=== PATIENT | female | born 1965 | race Caucasian/White ===

== ENCOUNTER 2018-08-24 13:40 | Inpatient (IN) | payer MEDICAID ==
--- NOTE | 2018-08-24 13:53 | ED Physician Chart ---
ED Chief Complaint/HPI - Patient Information Date Seen:: 08/24/18 Time Seen:: 13:10 Chief Complaint:: Chest Pain History of Present Illness:: onset x 2 days of midsternal, pressure type chest pain with dyspnea; pt denies trauma, H/As, S/T, neck pain, Abd. Pain, cough, A/N/V/D/C, fever, chills, or urinary s/s Historian:: Patient Review:: Nurse's Note Reviewed ED Review of Systems - Review of Systems General/Constitutional: No fever, No chills, No weight loss, No weakness, No diaphoresis, No edema, No loss of appetite Skin: No skin lesions, No rash, No bruising Head: No headache, No light-headedness Eyes: No loss of vision, No pain, No diplopia ENT: No earache, No nasal drainage, No sore throat, No tinnitus Neck: No neck pain, No swelling, No thyromegaly, No stiffness, No mass noted Cardio Vascular: Chest pain, No palpitations, No PND, No orthopnea, No edema Pulmonary: SOB, No cough, No sputum, No wheezing GI: No nausea, No vomiting, No diarrhea, No pain, No melena, No hematochezia, No constipation, No hematemesis G/U: No dysuria, No frequency, No hematuria, No nacturia Crusher Screen Repairer: No vaginal discharge, No abnormal vaginal bleed, No contraction Musculoskeletal: No bone or joint pain, No back pain, No muscle pain Endocrine: No polyuria, No polydipsia Psychiatric: No prior psych history, No depression, No anxiety, No suicidal ideation, No homicidal ideation, No auditory hallucination, No visual hallucination Hematopoietic: No bruising, No lymphadenopathy Allergic/Immuno: No urticaria, No angioedema Neurological: No syncope, No focal symptoms, No weakness, No paresthesia, No headache, No seizure, No dizziness, No confusion, No vertigo ED Past Medical History - Past Medical History Obtainable: Yes Past Medical History: HTN, DM Family History: Diabetes Melitus, HTN Social History: Non Smoker, No Alcohol, No Drug Use, Surgical History: None Psychiatricy History: None Medication: Reviewed Family Medical History - Family Member Mother History Unknown: Yes ED Physical Exam - Physical Examination General/Constitutional: Awake, Well-developed, well-nourished, Alert, No distress, GCS 15, Non-toxic appearing, Ambulatory Head: Atraumatic Eyes: Lids, conjuctiva normal, PERRL, EOMI Skin: Nl inspection, No rash, No skin lesions, No ecchymosis, Well hydrated, No lymphadenopathy ENMT: External ears, nose nl, TM canals nl, Nasal exam nl, Lips, teeth, gums nl , Oropharynx nl, Tonsils nl Neck: Nontender, Full ROM w/o pain, No JVD, No nuchal rigidity, No bruit, No mass, No stridor Respiratory: Nl effort/Exclusion, Clear to Auscultation, No Wheeze/Rhonchi/Rales Cardio Vascular: RRR, No murmur, gallop, rubs, NL S1 S2, Carotid/Femoral/Distal pulses equal bilaterally GI: No tenderness/rebounding/guarding, No organomegaly, No hernia, Normal BS's, Nondistended, No mass/bruits, No McBurney tenderness : No CVA tenderness Extremities: No tenderness or effusion, Full ROM, normal strength in all extremities, No edema, Normal digits & nails Neuro/Psych: Alert/oriented, DTR's symmetric, Normal sensory exam, Normal motor strength, Judgement/insight normal, Mood normal, Normal gait, No focal deficits Misc: Normal back, No paraspinal tenderness ED Labs/Radiology/EKG Results - Lab Results Comments:: Reviewed - Radiology Results Comments:: NAD - EKG Interpretations EKG Time:: 14:28 Rate & Rhythm: 108; ST Comments:: non-specific st-t changes ED Septic Shock - . Is Septic Shock (SBP<90, OR Lactate>4 mmol\L) present?: No ED Reassessment (Disposition) - Reassessment Reassessment Condition:: Improved - Diagnosis Diagnosis:: Chest Pain; Dyspnea; Hyponatremia; Uncontrolled DM; Hyperglycemia; Angina Pectoris; Tachycardia - Aftercare/Follow up Instructions Aftercare/Follow-Up Instructions:: Counseled pt regarding lab results/diagnosis & need follow up, Counseled pt & family regarding lab results/diagnosis & need follow up - Patient Disposition Discharge/Transfer:: Acute Care w/in this hosp Accepting Physician:: Dr. De La Cruz Time Called:: 1600 Time Responded:: 16:00 Admitted to:: Telemetry Spoke to:: Dr. De La Cruz Admitting Medical Physician:: Dr. De La Cruz Condition at Disposition:: Stable, Improved
[2018-08-24 15:02] LABS: % BASOPHILS 1.1 % (0.0-2.0); % EOSINOPHILS 3.5 % (0.0-5.0); % LYMPHOCYTES 36.6 % (20.0-50.0); % MONOCYTES 11.9 % (2.0-10.0); % NEUTROPHILS 46.9 % (40.0-80.0); BASOPHILE ABSOLUTE 0.1 Th/cumm (0-0.2); EOSINOPHILE ABSOLUTE 0.2 Th/cmm (0.1-0.4); HEMATOCRIT 43.2 % (41.0-60); HEMOGLOBIN 14.2 gm/dL (12-16); LYMPHOCYTE ABSOLUTE 2.5 Th/cmm (1.5-3.0); MEAN CELL VOLUME 85.9 fl (81-100); MEAN CORPUSCULAR HEMOGLOBIN 28.2 pg (27.0-31.0); MEAN CORPUSCULAR HGB CONC 32.8 pg (28.0-36.0); MEAN PLATELET VOLUME 8.1 fl; MONOCYTE ABSOLUTE 0.8 Th/cmm (0.3-1.0); NEUTROPHILE ABSOLUTE 3.3 Th/cmm (1.8-8.0); PLATELET COUNT 315 Th/cmm (150-400); RED BLOOD COUNT 5.02 Mil/cmm (3.80-5.10); WHITE BLOOD COUNT 6.9 Th/cmm (4.8-10.8)
[2018-08-24 15:04] LABS: INR 0.95 (0.5-1.4); PROTHROMBIN TIME (TEST) 9.9 SECONDS (9.5-11.5)
[2018-08-24 15:38] LABS: ALB/GLOB RATIO 1.2 (1.0-1.8); ALBUMIN 4.2 gm/dL (3.7-5.3); ALKALINE PHOSPHATASE 66 U/L (34-104); ANION GAP 13.5 (7.0-16.0); BILIRUBIN,TOTAL 0.5 mg/dL (0.3-1.0); BUN - UREA NITROGEN 16 mg/dL (7-25); CALCIUM SERUM 9.5 mg/dL (8.6-10.3); CHLORIDE 97 mEq/L (98-107); CHOLESTEROL 175 mg/dL (<200); CREATININE - SERUM 0.8 mg/dL (0.6-1.2); CREATININE KINASE 70 U/L (30-223); GFR AFRICAN-AMERICAN > 60.0 ml/min (>90); GFR NON AFRICAN-AMERICAN > 60.0 ml/min; GLUCOSE 344 mg/dL (70-105); HDL -HIGH DENSITY LIPOPROTEIN 38 mg/dL (23-92); POTASSIUM SERUM 4.5 mEq/L (3.5-5.1); SGOT 13 U/L (13-39); SGPT/ALT 17 U/L (7-52); SODIUM SERUM 132 mEq/L (136-145); TOTAL PROTEIN,SERUM 7.6 gm/dL (6.0-8.3); TRIGLYCERIDES 248 mg/dL (<150)
[2018-08-24 15:53] LABS: DDIMER QUANT 380 ng/mL (100-400)
[2018-08-24] MEDS ORDERED: Aspirin 81mg Chewable Tab PO STA (16:03)
[2018-08-24] MEDS ORDERED: INSULIN HUMAN REGULAR 100 UNITS/ML UNIT SUBQ ONE (16:04)
[2018-08-24] MEDS ORDERED: Aspirin 81mg Chewable Tab ONE (16:25)
[2018-08-24] MEDS ORDERED: INSULIN HUMAN REGULAR 100 UNITS/ML UNIT ONE (16:29)
[2018-08-24] MEDS ORDERED: Triple Antibiotic 0.94 gm Pkt TP ONE (16:43)
[2018-08-24 18:49] VITALS: BP 122/67
[2018-08-24] MEDS ORDERED: Dicyclomine 10 mg Cap PO PRN (19:59)
--- NOTE | 2018-08-25 08:33 | History and Physical ---
History of Present Illness - HPI Chief Complaint: Chest Pain HPI: 53 y/o female who presents to [facility] ER for 2 day history of chest pain with dyspnea. Patient denies neck pain, abd pain, cough. nausea, vomiting,diarrhea,constipation,fever,chills,urinary symptoms. Patient has a previous history of diabetes mellitus, hypertension, and hyperlipidemia. Patient 's inital labwork reveals the following ... Labs revealed the following... wbc 6.9 h/h 14.2/43.2 platelets 315K Na 132 K 4.5 Bun/cr 16/0.8 glu 344 initial trop < 0.01 chol 175 trig 248 ldl 98 hdl 38 patient was subsequently admitted for further evaluation and treatment. Vital Signs: Last Vital Signs Temp 97.7 F 08/25/18 04:00 Pulse 105 08/25/18 04:00 Resp 18 08/25/18 04:00 BP 122/88 08/25/18 04:00 Pulse Ox 98 08/25/18 04:00 Past Medical History Cardiovascular: Report: HTN, Hyperlipidemia Pulmonary: Report: No Pertinent Hx MANUFACTURING WEAVER: Report: No Pertinent Hx GI: Report: No Pertinent Hx Psych: Report: No Pertinent Hx Musculoskeletal: Report: No Pertinent Hx Rheumatologic: Report: No pertinent Hx Infectious Disease: Report: No Pertinent Hx Renal/: Report: No Pertinent Hx Endocrine: Report: No Pertinent Hx Dermatology: Report: No Pertinent Hx - Past Surgical History Past Surgical History: No pertinent Hx Family Medical History - Family Member Mother History Unknown: Yes Social History Smoke: No Alcohol: None Drugs: None Lives: With Family - Medications Home Medications: Home Medication Medication Instructions Recorded Type Ciprofloxacin HCl [Cipro] 500 mg PO BID 08/24/18 History Gabapentin 08/24/18 History Lisinopril 5 mg PO 08/24/18 History glyBURIDE [Diabeta] 10 mg PO BID 08/24/18 History - Allergies Allergies/Adverse Reactions: Allergies Allergy/AdvReac Type Severity Reaction Status Date / Time Penicillins [PCN] Allergy Verified 08/24/18 14:11 Review of Systems - Review of Systems Constitutional: Report: No Significant Eyes: Report: No Significant ENT: Report: No Significant Respiratory: Report: No Significant Cardiovascular: Report: Chest Pain Gastrointestinal: Report: No Significant Genitourinary: Report: No Significant Musculoskeletal: Report: No Significant Skin: Report: No Significant Neurological: Report: No Significant Physical Exam - Physical Exam HEENT: Report: Ears Nose Throat within normal limits, Pharnyx within normal limits Neck: Report: Within normal limits Cardiovascular Systems: Report: +s1/s2 noted, Regular, Rate and Rhythm Respiratory: Report: Breath Sounds are within normal limits Abdomen: Report: Non-tender to palpation Back: Report: Inspection of back is within normal limits. Extremities: Report: Non-tender to palpation. Skin: Report: Color of skin is within normal limits Neuro/Psych: Report: Mood affect is within normal limits, A+Ox3 - Lab Results All Lab Results last 24 hours: Laboratory Results - last 24 hr 08/24/18 08/24/18 08/24/18 14:41 14:41 14:41 WBC 6.9 RBC 5.02 Hgb 14.2 Hct 43.2 MCV 85.9 MCH 28.2 MCHC Differential 32.8 RDW 12.0 Plt Count 315 MPV 8.1 Neutrophils % 46.9 Lymphocytes % 36.6 Monocytes % 11.9 H Eosinophils % 3.5 Basophils % 1.1 PT 9.9 INR 0.95 D-Dimer 380 Sodium 132 L Potassium 4.5 Chloride 97 L Carbon Dioxide 26.0 Anion Gap 13.5 BUN 16 Creatinine 0.8 Est GFR ( Amer) > 60.0 Est GFR (Non-Af Amer) > 60.0 BUN/Creatinine Ratio 20.0 Glucose 344 H Calcium 9.5 Total Bilirubin 0.5 AST 13 ALT 17 Alkaline Phosphatase 66 Creatine Kinase 70 Troponin I B-Natriuretic Peptide Total Protein 7.6 Albumin 4.2 Globulin 3.4 Albumin/Globulin Ratio 1.2 Triglycerides 248 H Cholesterol 175 LDL Cholesterol Direct 98 HDL Cholesterol 38 Serum , Qual 08/24/18 08/24/18 08/24/18 14:41 14:41 14:41 WBC RBC Hgb Hct MCV MCH MCHC Differential RDW Plt Count MPV Neutrophils % Lymphocytes % Monocytes % Eosinophils % Basophils % PT INR D-Dimer Sodium Potassium Chloride Carbon Dioxide Anion Gap BUN Creatinine Est GFR ( Amer) Est GFR (Non-Af Amer) BUN/Creatinine Ratio Glucose Calcium Total Bilirubin AST ALT Alkaline Phosphatase Creatine Kinase Troponin I < 0.01 L B-Natriuretic Peptide 11.7 Total Protein Albumin Globulin Albumin/Globulin Ratio Triglycerides Cholesterol LDL Cholesterol Direct HDL Cholesterol Serum , Qual NEGATIVE - Assessment Assessment: chest pain rule out ACS diabetes mellitus hypertension hyperlipidemia - Plan Plan: cardiac consult serial troponins continue home meds
--- NOTE | 2018-08-25 08:59 | Diagnostic Imaging Report ---
Portable chest x-ray History: Pain Allowing for portable technique the heart size is normal. No focal pulmonary parenchymal processes. No hilar or mediastinal abnormalities. Impression: No acute abnormalities.
[2018-08-25 09:31] LABS: AMYLASE SERUM 56 U/L (29-103); LIPASE 101 U/L (11-82)
[2018-08-25] MEDS: Aspirin 81mg Chewable Tab PO SCH (09:43)
--- NOTE | 2018-08-25 10:16 | Diagnostic Imaging Report ---
Abdominal to HISTORY: Pain The liver appears somewhat increased in size. There is an increase in parenchymal echogenicity may be associated with fatty infiltration. The findings should be correlated with liver function tests per no focal lesions are seen. There is question of an approximate 1.0 cm intraluminal echogenic density in the vicinity of the right hepatic vein. Again, the finding is questionable. A three-phase CT scan is recommended for further clarification and assessment. No biliary dilatation. The exam of the gallbladder demonstrates an approximate 0.6 x 1.0 cm intraluminal echogenic density. Findings suggest cholelithiasis. No abnormality seen in the region of the pancreas. The kidneys appear normal bilaterally. No other significant retroperitoneal or intra-abdominal abnormalities. IMPRESSION: 1. Solitary intraluminal echogenic density within the gallbladder suggesting cholelithiasis. 2. Questionable intraluminal echogenic density in the vicinity of the right hepatic vein. The finding is of questionable and uncertain significance. A [address] scan would provide additional clarification. 3. Slight hepatomegaly along with parenchymal changes that may be related to fatty infiltration. The findings should be correlated with liver function tests.
[2018-08-25] MEDS: INSULIN ASPART SLIDING SCALE 100 UNITS/ML UNIT SUBQ SCH ×3 (12:19→20:56)
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
[2018-08-25] MEDS ORDERED: D5-0.45NS 1,000 ML IV SCH (18:50)
--- NOTE | 2018-08-25 23:13 | Consultation ---
DATE OF CONSULTATION: 08/25/[address] Correa. HISTORY OF PRESENT ILLNESS: This is a 53-year-old female patient who has been complaining of pain in the abdomen, not radiating to the arm or to the neck. The pain is on the left upper quadrant. No nausea or vomiting. According to the patient, the pain is for a year. The patient is supposed to see a printed circuit boards plasma etcher. Before that, the patient came to the Emergency Room. PAST MEDICAL HISTORY: Hypertension and hyperlipidemia. FAMILY HISTORY: Diabetes. SOCIAL HISTORY: No history of smoking, alcohol abuse. ALLERGIES: None. PHYSICAL EXAMINATION: VITAL SIGNS: Blood pressure 130/70, pulse 70, respirations 20, and temperature 98. HEAD: Normocephalic. No lumps or bumps. EYES: Pupils equal, reactive to light. Fundi show AV nicking, sclerae white, conjunctivae pink. NECK: Carotid 2+. Normal upstroke. JVD flat. Thyroid not palpable. Lymph nodes not palpable. CHEST: Shows increased AP diameter. No kyphosis, scoliosis. LUNGS: Bilateral bronchovesicular breath sounds. HEART: PMI fifth intercostal space with lateral to midclavicular line. S1, S2, S3, S4, soft systolic murmur. ABDOMEN: Soft. Liver, spleen not palpable. There is mild tenderness in the epigastric area in the left upper abdomen. NEUROLOGIC: Unremarkable. EXTREMITIES: Peripheral pulses 2+. No pedal edema. CLINICAL IMPRESSION: Gallstones, asymptomatic hypertension, diabetes, and hyperlipidemia. PLAN: The patient to continue present management. The patient's cardiac status normal. JOB# [id number]
[2018-08-26 05:43] LABS: INR 0.95 (0.5-1.4); PROTHROMBIN TIME (TEST) 9.9 SECONDS (9.5-11.5)
[2018-08-26] MEDS: INSULIN ASPART SLIDING SCALE 100 UNITS/ML UNIT SUBQ SCH ×4 (08:05→21:45)
--- NOTE | 2018-08-26 08:33 | General Progress Note ---
Subjective - Review of Systems Service Date: 08/26/18 Subjective: Patient was seen and examined this morning. For EGD today. NPO for now. on IV fluids. Patient denies chest pain or shortness of breath. Objective - Results Result Diagrams: 08/24/18 14:41 08/24/18 14:41 Recent Labs: Laboratory Last Values WBC 6.9 Th/cmm (4.8-10.8) 08/24/18 14:41 RBC 5.02 Mil/cmm (3.80-5.10) 08/24/18 14:41 Hgb 14.2 gm/dL (12-16) 08/24/18 14:41 Hct 43.2 % (41.0-60) 08/24/18 14:41 MCV 85.9 fl (81-100) 08/24/18 14:41 MCH 28.2 pg (27.0-31.0) 08/24/18 14:41 MCHC Differential 32.8 pg (28.0-36.0) 08/24/18 14:41 RDW 12.0 % (11.5-20.0) 08/24/18 14:41 Plt Count 315 Th/cmm (150-400) 08/24/18 14:41 MPV 8.1 fl 08/24/18 14:41 Neutrophils % 46.9 % (40.0-80.0) 08/24/18 14:41 Lymphocytes % 36.6 % (20.0-50.0) 08/24/18 14:41 Monocytes % 11.9 % (2.0-10.0) H 08/24/18 14:41 Eosinophils % 3.5 % (0.0-5.0) 08/24/18 14:41 Basophils % 1.1 % (0.0-2.0) 08/24/18 14:41 PT 9.9 SECONDS (9.5-11.5) 08/26/18 04:40 INR 0.95 (0.5-1.4) 08/26/18 04:40 D-Dimer 380 ng/mL (100-400) 08/24/18 14:41 Sodium 132 mEq/L (136-145) L 08/24/18 14:41 Potassium 4.5 mEq/L (3.5-5.1) 08/24/18 14:41 Chloride 97 mEq/L (98-107) L 08/24/18 14:41 Carbon Dioxide 26.0 mEq/L (21.0-31.0) 08/24/18 14:41 Anion Gap 13.5 (7.0-16.0) 08/24/18 14:41 BUN 16 mg/dL (7-25) 08/24/18 14:41 Creatinine 0.8 mg/dL (0.6-1.2) 08/24/18 14:41 Est GFR ( Amer) > 60.0 ml/min (>90) 08/24/18 14:41 Est GFR (Non-Af Amer) > 60.0 ml/min 08/24/18 14:41 BUN/Creatinine Ratio 20.0 08/24/18 14:41 Glucose 344 mg/dL (70-105) H 08/24/18 14:41 POC Glucose 305 MG/DL (70 - 105) H 08/26/18 06:59 Calcium 9.5 mg/dL (8.6-10.3) 08/24/18 14:41 Total Bilirubin 0.5 mg/dL (0.3-1.0) 08/24/18 14:41 AST 13 U/L (13-39) 08/24/18 14:41 ALT 17 U/L (7-52) 08/24/18 14:41 Alkaline Phosphatase 66 U/L (34-104) 08/24/18 14:41 Creatine Kinase 70 U/L (30-223) 08/24/18 14:41 Troponin I < 0.01 ng/mL (0.01-0.05) L 08/25/18 16:30 B-Natriuretic Peptide 11.7 pg/mL (5.0-100.0) 08/24/18 14:41 Total Protein 7.6 gm/dL (6.0-8.3) 08/24/18 14:41 Albumin 4.2 gm/dL (3.7-5.3) 08/24/18 14:41 Globulin 3.4 gm/dL 08/24/18 14:41 Albumin/Globulin Ratio 1.2 (1.0-1.8) 08/24/18 14:41 Triglycerides 248 mg/dL (<150) H 08/24/18 14:41 Cholesterol 175 mg/dL (<200) 08/24/18 14:41 LDL Cholesterol Direct 98 mg/dL (75-193) 08/24/18 14:41 HDL Cholesterol 38 mg/dL (23-92) 08/24/18 14:41 Amylase 56 U/L (29-103) 08/25/18 08:59 Lipase 101 U/L (11-82) H 08/25/18 08:59 TSH 2.29 uIU/ml (0.34-5.60) 08/25/18 08:59 Serum , Qual NEGATIVE (NEGATIVE) 08/24/18 14:41 - Physical Exam Vitals and I&O: Vital Signs Temp 97.2 F 08/26/18 04:00 Pulse 89 08/26/18 04:00 Resp 18 08/26/18 04:00 BP 115/69 08/26/18 04:00 Pulse Ox 98 08/26/18 04:00 Intake & Output 08/25/18 08/26/18 08/26/18 18:59 06:59 18:59 Intake Total 120 520 Balance 120 520 Weight (lbs) 54.431 kg 56.245 kg Intake: Oral 120 520 Other: # Voids 3 # Bowel Movements 0 Weight Source Bedscale Bedscale Active Medications: Current Medications Aspirin (Aspirin Chewable) 81 mg PO DAILY [facility] Stop: 10/24/18 08:59 Last Admin: 08/25/18 09:43 Dose: 81 mg Dicyclomine HCl (Bentyl) 10 mg PO Q6H PRN PRN Reason: ABDOMINAL PAIN/SPASM Stop: 10/23/18 19:58 Last Admin: 08/24/18 20:15 Dose: 10 mg Gabapentin (Neurontin) 300 mg PO DAILY [facility] Stop: 10/24/18 08:59 Last Admin: 08/25/18 09:43 Dose: 300 mg Glyburide (Diabeta) 10 mg PO BID [facility] Stop: 10/24/18 08:59 Last Admin: 08/25/18 16:52 Dose: 10 mg Dextrose/Sodium Chloride (D5-0.45ns) 1,000 mls @ 50 mls/hr IV .Q20H [facility] Stop: 10/24/18 18:49 Last Admin: 08/25/18 20:33 Dose: 50 mls/hr Insulin Aspart (Novolog Insulin Sliding Scale) 0 units SUBQ ACHS [facility]; Protocol Stop: 10/24/18 11:29 Last Admin: 08/26/18 08:05 Dose: 8 units Lisinopril (Zestril) 5 mg PO DAILY [facility] Stop: 10/24/18 08:59 Last Admin: 08/25/18 09:43 Dose: 5 mg Lorazepam (Ativan) 0.5 mg IVP Q8H PRN; Protocol PRN Reason: Anxiety Stop: 10/24/18 19:29 Last Admin: 08/25/18 21:04 Dose: 0.5 mg Morphine Sulfate (Morphine) 1 mg IV Q6H PRN PRN Reason: Abdominal Cramping Stop: 10/24/18 18:59 General: Alert, Oriented x3, No acute distress HEENT: Atraumatic, PERRLA, EOMI Neck: Supple Cardiovascular: Regular rate, Normal S1, Normal S2 Lungs: Clear to auscultation Extremities: no Clubbing, no Cyanosis, no Edema Assessment/Plan - Assessment Assessment: chest pain ACS ruled out diabetes mellitus hypertension hyperlipidemia cholelithiasis noted on US abd epigastric pain for EGD today. anxiety disorder - Plan Plan: EGD today keep NPO on IV fluids Nutritional Asmnt/Malnutr-PDOC - Dietary Evaluation Malnutrition Findings (Please click <Entered> for more info): Nutritional Asmnt/Malnutrition Start: 08/25/18 14: 36 Text: Status: Complete Freq: Protocol: Document 08/25/18 14:36 SUDARSHAN (Rec: 08/25/18 14:52 SUDARSHAN FRIAS) Nutritional Asmnt/Malnutrition Patient General Information Nutritional Screening High Risk Consult Diagnosis chest pain Pertinent Medical Hx/Surgical Hx DM, HTN, hyperlipidemia Subjective Information Consult received for [facility] at admission. Pt eating lunch and appeared to have finished 90-100% at time of visit. Pt states she likes chamomile tea and dislikes pork. Pt states she has insulin at home, but doesn 't take it and tries to watch her carbohydrate intake at home. Provided education on carbohydrate counting to pt. Per EMR, pt finished 100% breakfast today. Current Diet Order/ Nutrition Support CCHO 45 gm Pertinent Medications diabeta, novolog Pertinent Labs 08/25: POC 398 08/24: glucose 344, Na 132, Cl 97, triglycerides 248 Nutritional Hx/Data Height 1.5 m Height (Calculated Centimeters) 149.9 Current Weight (lbs) 54.431 kg Weight (Calculated Kilograms) 54.4 Weight (Calculated Grams) 87784.1 [place] Body Weight 98 lb Body Mass Index (BMI) 24.2 Weight Status Approriate GI Symptoms GI Symptoms None Last BM none noted Difficult in: None Food Allergies No Usual diet at home Pt states she tries to eat healthy and control her carbohydrate intake Skin Integrity/Comment: intact, maurice 20 Current %PO Good (75-100%) Estimated Nutritional Goals BEE in Kcals: Using Current wt Calories/Kcals/Kg 25-30 Kcals Calculated 4404-8132 Protein: Using Current wt Protein g/k.8-1 Protein Calculated 44-55 g Fluid: ml 5286-1599 (1 ml/kcal) Nutritional Problem 1. Problem Problem Altered nutrition related lab values Etiology hyperglycemia, hx of DM, electrolyte imbalance Signs/Symptoms: POC 398, glucose 344, Na 132, Cl 97 Malnutrition Alert Is there a minimum of two criteria No selected? Query Text:Check all the applicable criteria. A minimum of two criteria are recommended for diagnosis of either severe or non-severe malnutrition. Malnutrition Related to Morbid Obesity Malnutrition related to morbid obesity No Intervention/Recommendation Comments 1. Continue with [facility] 45 gm diet as ordered d/t elevated bs. Diabetic education provided to pt. Pt verbalized understanding. Diabetic diet handouts given to pt. 2. MD to replace electrolytes as needed 3. Monitor PO intake, wt, labs and skin integrity 4. F/U as moderate risk in 3-5 days, 08/28-08/30 Expected Outcomes/Goals Expected Outcomes/Goals 1. PO intake to meet at least 75% of all meals 2. Wt stability, skin to remain intact, labs to approach normal limits Reviewd by Jacqui Evangelista RD
[2018-08-26] MEDS: Aspirin 81mg Chewable Tab PO SCH (09:22)
[2018-08-26] MEDS: Morphine Sulfate 2 mg/mL 1mL Syr IV PRN ×2 (11:42→21:46)
[2018-08-26] MEDS ORDERED: Propofol 10 mg/mL 20mL Vial **SURGERY USE ONLY IV ONE (12:40)
[2018-08-26] MEDS ORDERED: Lidocaine 2% Gel 5 mL TP ONE (12:40)
--- NOTE | 2018-08-26 14:12 | Operative Report ---
DATE OF SURGERY: 08/26/2018 REFERRING PHYSICIAN: Rolf Correa DO PROCEDURE PERFORMED: EGD with biopsy. PREOPERATIVE DIAGNOSES: 1. Intractable abdominal pain. 2. Cholelithiasis. POSTOPERATIVE DIAGNOSIS: Moderate erosive gastritis. INDICATION: This is a 53-year-old female who presents with nonspecific complaints of chest pain and dyspnea as well as left upper quadrant abdominal pain. She states she has been having this pain on and off and it is constant, not associated with eating. She had an abdominal ultrasound that showed gallstones; however, her symptomatology was not clearcut for biliary type of pain. An upper endoscopy was chosen for further evaluation to help with diagnosis for any causes of her pain. CONSENT: Informed consent was obtained from the patient after explaining the risks, benefits and alternatives of the procedure, which were understood and so stated. SEDATION: Per anesthesia. EGD: While the patient was in the left lateral decubitus position, a GIF-H180 scope was introduced through the patient's mouth and advanced under direct visualization into the esophagus down into the stomach and up to the second portion of the duodenum. Here, the scope was withdrawn carefully examining the color, texture and anatomy of the mucosa. The patient had normal D1 and D2. The scope was then brought back to the gastric body where retroflexion was performed, which was normal. The scope was then straightened forward. Careful attention was paid into the gastric body and antrum. There was evidence of mild to moderate erosive gastritis in this area. We took biopsies to rule out H. pylori and sent for CLOtest. The scope was then brought back to the GE junction, which was present at 38 cm from the incisors. The patient had a slightly irregular Z line; however, no evidence of esophagitis. The scope was then brought back to the middle of the esophagus, which was normal. The scope was then drawn out and the patient tolerated this procedure well. RECOMMENDATIONS: 1. We would add a daily PPI to her regimen. 2. Advance diet as tolerated. 3. We would recommend a CT scan triple phase for ruling out any sort of gallbladder polyp or gallbladder type of lesion as referred to and her abdominal ultrasound from admission. Thank you for allowing us to participate in this patient's care. We will follow. [facility]# [id number]
--- NOTE | 2018-08-26 16:47 | Cardiology ---
08/25/2018 PROCEDURE: Echocardiogram. The patient of Dr. Correa. M-MODE ECHOCARDIOGRAM: Mitral valve, anterior leaflet of mitral valve shows normal excursion, EF velocity. Posterior leaflet of mitral valve shows normal excursion. Left ventricular posterior wall showed normal thickness, excursion. Interventricular septum showed normal thickness, excursion. Ejection fraction 74%. Left atrium normal. Aortic root shows normal dimension, normal excursion of aortic leaflets. CONCLUSION: Normal M-mode echo, ejection fraction 74%. 2D ECHO: Long axis view showed normal sized left ventricle with normal wall motion, mitral valve shows normal excursion. Left atrium normal. Aortic root shows normal dimension, normal excursion of aortic leaflets. Short axis view of mitral valve normal. Short axis view of aortic valve normal. Apical four chamber view showed normal sized left ventricle, left atrium, right ventricle, right atrium, tricuspid, and mitral valve. Ejection fraction 74%. CONCLUSION: Normal 2D echo, ejection fraction 74%. Doppler study showed trace mitral regurgitation, trace tricuspid regurgitation, right ventricular systolic pressure 28 mmHg. [facility]# [id number]
--- NOTE | 2018-08-27 05:41 | General Progress Note ---
Subjective - Review of Systems Service Date: 08/27/18 Subjective: Patient was seen and examined this morning. EGD done yesterday, shows mild to moderate gastritis. on PPI. abd pain improving. no chest pain or sob. Objective - Results Result Diagrams: 08/24/18 14:41 08/24/18 14:41 Recent Labs: Laboratory Last Values WBC 6.9 Th/cmm (4.8-10.8) 08/24/18 14:41 RBC 5.02 Mil/cmm (3.80-5.10) 08/24/18 14:41 Hgb 14.2 gm/dL (12-16) 08/24/18 14:41 Hct 43.2 % (41.0-60) 08/24/18 14:41 MCV 85.9 fl (81-100) 08/24/18 14:41 MCH 28.2 pg (27.0-31.0) 08/24/18 14:41 MCHC Differential 32.8 pg (28.0-36.0) 08/24/18 14:41 RDW 12.0 % (11.5-20.0) 08/24/18 14:41 Plt Count 315 Th/cmm (150-400) 08/24/18 14:41 MPV 8.1 fl 08/24/18 14:41 Neutrophils % 46.9 % (40.0-80.0) 08/24/18 14:41 Lymphocytes % 36.6 % (20.0-50.0) 08/24/18 14:41 Monocytes % 11.9 % (2.0-10.0) H 08/24/18 14:41 Eosinophils % 3.5 % (0.0-5.0) 08/24/18 14:41 Basophils % 1.1 % (0.0-2.0) 08/24/18 14:41 PT 9.9 SECONDS (9.5-11.5) 08/26/18 04:40 INR 0.95 (0.5-1.4) 08/26/18 04:40 D-Dimer 380 ng/mL (100-400) 08/24/18 14:41 Sodium 132 mEq/L (136-145) L 08/24/18 14:41 Potassium 4.5 mEq/L (3.5-5.1) 08/24/18 14:41 Chloride 97 mEq/L (98-107) L 08/24/18 14:41 Carbon Dioxide 26.0 mEq/L (21.0-31.0) 08/24/18 14:41 Anion Gap 13.5 (7.0-16.0) 08/24/18 14:41 BUN 16 mg/dL (7-25) 08/24/18 14:41 Creatinine 0.8 mg/dL (0.6-1.2) 08/24/18 14:41 Est GFR ( Amer) > 60.0 ml/min (>90) 08/24/18 14:41 Est GFR (Non-Af Amer) > 60.0 ml/min 08/24/18 14:41 BUN/Creatinine Ratio 20.0 08/24/18 14:41 Glucose 344 mg/dL (70-105) H 08/24/18 14:41 POC Glucose 374 MG/DL (70 - 105) H 08/26/18 21:39 Calcium 9.5 mg/dL (8.6-10.3) 08/24/18 14:41 Total Bilirubin 0.5 mg/dL (0.3-1.0) 08/24/18 14:41 AST 13 U/L (13-39) 08/24/18 14:41 ALT 17 U/L (7-52) 08/24/18 14:41 Alkaline Phosphatase 66 U/L (34-104) 08/24/18 14:41 Creatine Kinase 70 U/L (30-223) 08/24/18 14:41 Troponin I < 0.01 ng/mL (0.01-0.05) L 08/25/18 16:30 B-Natriuretic Peptide 11.7 pg/mL (5.0-100.0) 08/24/18 14:41 Total Protein 7.6 gm/dL (6.0-8.3) 08/24/18 14:41 Albumin 4.2 gm/dL (3.7-5.3) 08/24/18 14:41 Globulin 3.4 gm/dL 08/24/18 14:41 Albumin/Globulin Ratio 1.2 (1.0-1.8) 08/24/18 14:41 Triglycerides 248 mg/dL (<150) H 08/24/18 14:41 Cholesterol 175 mg/dL (<200) 08/24/18 14:41 LDL Cholesterol Direct 98 mg/dL (75-193) 08/24/18 14:41 HDL Cholesterol 38 mg/dL (23-92) 08/24/18 14:41 Amylase 56 U/L (29-103) 08/25/18 08:59 Lipase 101 U/L (11-82) H 08/25/18 08:59 TSH 2.29 uIU/ml (0.34-5.60) 08/25/18 08:59 Serum , Qual NEGATIVE (NEGATIVE) 08/24/18 14:41 - Physical Exam Vitals and I&O: Vital Signs Temp 97.9 F 08/27/18 04:00 Pulse 100 08/27/18 04:00 Resp 18 08/27/18 04:00 BP 93/59 08/27/18 04:00 Pulse Ox 96 08/27/18 04:00 Intake & Output 08/26/18 08/26/18 08/27/18 06:59 18:59 06:59 Intake Total 520 420 100 Balance 520 420 100 Weight (lbs) 56.245 kg 56.245 kg 56.245 kg Intake: Oral 520 420 100 Other: # Voids 3 3 3 # Bowel Movements 0 1 0 Weight Source Bedscale Bedscale Bedscale Active Medications: Current Medications Aspirin (Aspirin Chewable) 81 mg PO DAILY [facility] Stop: 10/24/18 08:59 Last Admin: 08/26/18 09:22 Dose: Not Given Dicyclomine HCl (Bentyl) 10 mg PO Q6H PRN PRN Reason: ABDOMINAL PAIN/SPASM Stop: 10/23/18 19:58 Last Admin: 08/24/18 20:15 Dose: 10 mg Gabapentin (Neurontin) 300 mg PO DAILY [facility] Stop: 10/24/18 08:59 Last Admin: 08/26/18 09:23 Dose: Not Given Glyburide (Diabeta) 10 mg PO BID [facility] Stop: 10/24/18 08:59 Last Admin: 08/26/18 16:55 Dose: 10 mg Insulin Aspart (Novolog Insulin Sliding Scale) 0 units SUBQ ACHS [facility]; Protocol Stop: 10/24/18 11:29 Last Admin: 08/26/18 21:45 Dose: 10 units Lisinopril (Zestril) 5 mg PO DAILY [facility] Stop: 10/24/18 08:59 Last Admin: 08/26/18 09:00 Dose: Not Given Lorazepam (Ativan) 0.5 mg IVP Q8H PRN; Protocol PRN Reason: Anxiety Stop: 10/24/18 19:29 Last Admin: 08/26/18 15:42 Dose: 0.5 mg Morphine Sulfate (Morphine) 1 mg IV Q6H PRN PRN Reason: Abdominal Cramping Stop: 10/24/18 18:59 Last Admin: 08/26/18 21:46 Dose: 1 mg General: Alert, Oriented x3, No acute distress HEENT: Atraumatic, PERRLA, EOMI Neck: Supple Cardiovascular: Regular rate, Normal S1, Normal S2 Lungs: Clear to auscultation Extremities: no Clubbing, no Cyanosis, no Edema Assessment/Plan - Assessment Assessment: chest pain ACS ruled out diabetes mellitus hypertension hyperlipidemia cholelithiasis noted on US abd mild to moderate gastritis anxiety disorder for CT abd - Plan Plan: EGD today keep NPO on IV fluids Nutritional Asmnt/Malnutr-PDOC - Dietary Evaluation Malnutrition Findings (Please click <Entered> for more info): Nutritional Asmnt/Malnutrition Start: 08/25/18 14: 36 Text: Status: Complete Freq: Protocol: Document 08/25/18 14:36 SUDARSHAN (Rec: 08/25/18 14:52 SUDARSHAN FRIAS) Nutritional Asmnt/Malnutrition Patient General Information Nutritional Screening High Risk Consult Diagnosis chest pain Pertinent Medical Hx/Surgical Hx DM, HTN, hyperlipidemia Subjective Information Consult received for diabetic [facility] blood super at admission. Pt eating lunch and appeared to have finished 90-100% at time of visit. Pt states she likes chamomile tea and dislikes pork. Pt states she has insulin at home, but doesn 't take it and tries to watch her carbohydrate intake at home. Provided education on carbohydrate counting to pt. Per EMR, pt finished 100% breakfast today. Current Diet Order/ Nutrition Support CCHO 45 gm Pertinent Medications diabeta, novolog Pertinent Labs 08/25: POC 398 08/24: glucose 344, Na 132, Cl 97, triglycerides 248 Nutritional Hx/Data Height 1.5 m Height (Calculated Centimeters) 149.9 Current Weight (lbs) 54.431 kg Weight (Calculated Kilograms) 54.4 Weight (Calculated Grams) 87152.1 [place] Body Weight 98 lb Body Mass Index (BMI) 24.2 Weight Status Approriate GI Symptoms GI Symptoms None Last BM none noted Difficult in: None Food Allergies No Usual diet at home Pt states she tries to eat healthy and control her carbohydrate intake Skin Integrity/Comment: intact, maurice 20 Current %PO Good (75-100%) Estimated Nutritional Goals BEE in Kcals: Using Current wt Calories/Kcals/Kg 25-30 Kcals Calculated 1716-4382 Protein: Using Current wt Protein g/k.8-1 Protein Calculated 44-55 g Fluid: ml 5023-6275 (1 ml/kcal) Nutritional Problem 1. Problem Problem Altered nutrition related lab values Etiology hyperglycemia, hx of DM, electrolyte imbalance Signs/Symptoms: POC 398, glucose 344, Na 132, Cl 97 Malnutrition Alert Is there a minimum of two criteria No selected? Query Text:Check all the applicable criteria. A minimum of two criteria are recommended for diagnosis of either severe or non-severe malnutrition. Malnutrition Related to Morbid Obesity Malnutrition related to morbid obesity No Intervention/Recommendation Comments 1. Continue with [facility] 45 gm diet as ordered d/t elevated bs. Diabetic education provided to pt. Pt verbalized understanding. Diabetic diet handouts given to pt. 2. MD to replace electrolytes as needed 3. Monitor PO intake, wt, labs and skin integrity 4. F/U as moderate risk in 3-5 days, 08/28-08/30 Expected Outcomes/Goals Expected Outcomes/Goals 1. PO intake to meet at least 75% of all meals 2. Wt stability, skin to remain intact, labs to approach normal limits Reviewd by Jacqui Evangelista RD
[2018-08-27] MEDS: INSULIN ASPART SLIDING SCALE 100 UNITS/ML UNIT SUBQ SCH ×4 (07:44→21:13)
[2018-08-27] MEDS: Aspirin 81mg Chewable Tab PO SCH (08:30)
[2018-08-27] MEDS ORDERED: IOHEXOL 300mgI/mL 100 ML VIAL PO ONE (09:18)
--- NOTE | 2018-08-27 10:44 | Diagnostic Imaging Report ---
CT abdomen and pelvis with intravenous contrast Indication: Abdominal pain, mass Comparison: Ultrasound abdomen on 08/25/2018, Technique: Axial images were obtained from the lung bases to the bilateral proximal femurs with IV contrast. Coronal reconstructions were made. total DLP: 434, CTDI8.9 FINDINGS: The lung bases are clear. No evidence of focal hepatic lesions. There is a 3 mm gallstone. Limited assessment of the hepatic veins demonstrates no obvious focal abnormalities. Punctate calcification of the splenic hilum is noted possibly vascular. No focal pancreatic or adrenal lesions. Small left renal cyst is noted measuring 1 cm. Additional low-density lesions are seen too small to characterize suggestive of cysts. Pelvic calcifications are noted possibly vascular. Urinary bladder jets are noted. Vascular phleboliths are noted. There is moderate amount of stool throughout the colon. No evidence of appendicitis. No free air or free fluid. Mild atherosclerosis is noted. Degenerative changes of the spine and pelvis are noted. IMPRESSION: Small gallstone noted. No focal hepatic abnormalities identified on this contrast-enhanced exam. No focal abnormalities of the hepatic veins. A repeat short-term ultrasound may be obtained for further assessment if there is concern for intraluminal abnormalities within the hepatic vein not visualized by CT. Moderate stool throughout the colon. No evidence of free fluid. Mild atherosclerosis.
--- NOTE | 2018-08-27 11:41 | GI Progress Note ---
Subjective - Review of Systems Service Date: 08/27/18 Events since last encounter: No events Subjective: Better . Still C/O epigastric and LUQ discomfort Objective - Results Result Diagrams: 08/24/18 14:41 08/24/18 14:41 Recent Labs: Laboratory Last Values WBC 6.9 Th/cmm (4.8-10.8) 08/24/18 14:41 RBC 5.02 Mil/cmm (3.80-5.10) 08/24/18 14:41 Hgb 14.2 gm/dL (12-16) 08/24/18 14:41 Hct 43.2 % (41.0-60) 08/24/18 14:41 MCV 85.9 fl (81-100) 08/24/18 14:41 MCH 28.2 pg (27.0-31.0) 08/24/18 14:41 MCHC Differential 32.8 pg (28.0-36.0) 08/24/18 14:41 RDW 12.0 % (11.5-20.0) 08/24/18 14:41 Plt Count 315 Th/cmm (150-400) 08/24/18 14:41 MPV 8.1 fl 08/24/18 14:41 Neutrophils % 46.9 % (40.0-80.0) 08/24/18 14:41 Lymphocytes % 36.6 % (20.0-50.0) 08/24/18 14:41 Monocytes % 11.9 % (2.0-10.0) H 08/24/18 14:41 Eosinophils % 3.5 % (0.0-5.0) 08/24/18 14:41 Basophils % 1.1 % (0.0-2.0) 08/24/18 14:41 PT 9.9 SECONDS (9.5-11.5) 08/26/18 04:40 INR 0.95 (0.5-1.4) 08/26/18 04:40 D-Dimer 380 ng/mL (100-400) 08/24/18 14:41 Sodium 132 mEq/L (136-145) L 08/24/18 14:41 Potassium 4.5 mEq/L (3.5-5.1) 08/24/18 14:41 Chloride 97 mEq/L (98-107) L 08/24/18 14:41 Carbon Dioxide 26.0 mEq/L (21.0-31.0) 08/24/18 14:41 Anion Gap 13.5 (7.0-16.0) 08/24/18 14:41 BUN 16 mg/dL (7-25) 08/24/18 14:41 Creatinine 0.8 mg/dL (0.6-1.2) 08/24/18 14:41 Est GFR ( Amer) > 60.0 ml/min (>90) 08/24/18 14:41 Est GFR (Non-Af Amer) > 60.0 ml/min 08/24/18 14:41 BUN/Creatinine Ratio 20.0 08/24/18 14:41 Glucose 344 mg/dL (70-105) H 08/24/18 14:41 POC Glucose 182 MG/DL (70 - 105) H 08/27/18 06:48 Calcium 9.5 mg/dL (8.6-10.3) 08/24/18 14:41 Total Bilirubin 0.5 mg/dL (0.3-1.0) 08/24/18 14:41 AST 13 U/L (13-39) 08/24/18 14:41 ALT 17 U/L (7-52) 08/24/18 14:41 Alkaline Phosphatase 66 U/L (34-104) 08/24/18 14:41 Creatine Kinase 70 U/L (30-223) 08/24/18 14:41 Troponin I < 0.01 ng/mL (0.01-0.05) L 08/25/18 16:30 B-Natriuretic Peptide 11.7 pg/mL (5.0-100.0) 08/24/18 14:41 Total Protein 7.6 gm/dL (6.0-8.3) 08/24/18 14:41 Albumin 4.2 gm/dL (3.7-5.3) 08/24/18 14:41 Globulin 3.4 gm/dL 08/24/18 14:41 Albumin/Globulin Ratio 1.2 (1.0-1.8) 08/24/18 14:41 Triglycerides 248 mg/dL (<150) H 08/24/18 14:41 Cholesterol 175 mg/dL (<200) 08/24/18 14:41 LDL Cholesterol Direct 98 mg/dL (75-193) 08/24/18 14:41 HDL Cholesterol 38 mg/dL (23-92) 08/24/18 14:41 Amylase 56 U/L (29-103) 08/25/18 08:59 Lipase 101 U/L (11-82) H 08/25/18 08:59 TSH 2.29 uIU/ml (0.34-5.60) 08/25/18 08:59 Serum , Qual NEGATIVE (NEGATIVE) 08/24/18 14:41 - Physical Exam Vitals and I&O: Vital Signs Temp 97.7 F 08/27/18 08:00 Pulse 100 08/27/18 08:00 Resp 18 08/27/18 11:00 BP 117/66 08/27/18 08:00 Pulse Ox 98 08/27/18 08:00 Intake & Output 08/26/18 08/27/18 08/27/18 18:59 06:59 18:59 Intake Total 420 100 Balance 420 100 Weight (lbs) 56.245 kg 56.245 kg Intake: Oral 420 100 Other: # Voids 3 3 # Bowel Movements 1 0 Weight Source Bedscale Bedscale Active Medications: Current Medications Aspirin (Aspirin Chewable) 81 mg PO DAILY [facility] Stop: 10/24/18 08:59 Last Admin: 08/27/18 08:30 Dose: Not Given Dicyclomine HCl (Bentyl) 10 mg PO Q6H PRN PRN Reason: ABDOMINAL PAIN/SPASM Stop: 10/23/18 19:58 Last Admin: 08/24/18 20:15 Dose: 10 mg Gabapentin (Neurontin) 300 mg PO DAILY [facility] Stop: 10/24/18 08:59 Last Admin: 08/27/18 08:30 Dose: Not Given Glyburide (Diabeta) 10 mg PO BID [facility] Stop: 10/24/18 08:59 Last Admin: 08/27/18 08:30 Dose: Not Given Insulin Aspart (Novolog Insulin Sliding Scale) 0 units SUBQ ACHS [facility]; Protocol Stop: 10/24/18 11:29 Last Admin: 08/27/18 07:44 Dose: Not Given Lisinopril (Zestril) 5 mg PO DAILY [facility] Stop: 10/24/18 08:59 Last Admin: 08/27/18 08:30 Dose: Not Given Lorazepam (Ativan) 0.5 mg IVP Q8H PRN; Protocol PRN Reason: Anxiety Stop: 10/24/18 19:29 Last Admin: 08/26/18 15:42 Dose: 0.5 mg Morphine Sulfate (Morphine) 1 mg IV Q6H PRN PRN Reason: Abdominal Cramping Stop: 10/24/18 18:59 Last Admin: 08/26/18 21:46 Dose: 1 mg Pantoprazole Sodium (Protonix) 40 mg IVP DAILY [facility] Stop: 10/26/18 08:59 Last Admin: 08/27/18 08:39 Dose: 40 mg General: Alert, Oriented x3, No acute distress HEENT: Atraumatic, PERRLA, EOMI Neck: Supple Cardiovascular: Regular rate, Normal S1, Normal S2 Lungs: Clear to auscultation Abdomen: Bowel sounds, Soft Extremities: no Clubbing, no Cyanosis, no Edema Assessment/Plan - Assessment Assessment: Abd pain - Plan Plan: 1. Abdominal pain Most likely combination of gastritis +/_ IBS PPI and treat HP if positive If pain persists then Add BentylOPT colonoscopy
[2018-08-27] MEDS: Morphine Sulfate 2 mg/mL 1mL Syr IV PRN (21:11)
--- NOTE | 2018-08-28 05:48 | General Progress Note ---
Subjective - Review of Systems Service Date: 08/28/18 Subjective: Patient was seen and examined this morning. EGD done yesterday, shows mild to moderate gastritis. on PPI. abd pain improving. no chest pain or sob. CT abd noted. Patient feeling better today. Objective - Results Result Diagrams: 08/24/18 14:41 08/24/18 14:41 Recent Labs: Laboratory Last Values WBC 6.9 Th/cmm (4.8-10.8) 08/24/18 14:41 RBC 5.02 Mil/cmm (3.80-5.10) 08/24/18 14:41 Hgb 14.2 gm/dL (12-16) 08/24/18 14:41 Hct 43.2 % (41.0-60) 08/24/18 14:41 MCV 85.9 fl (81-100) 08/24/18 14:41 MCH 28.2 pg (27.0-31.0) 08/24/18 14:41 MCHC Differential 32.8 pg (28.0-36.0) 08/24/18 14:41 RDW 12.0 % (11.5-20.0) 08/24/18 14:41 Plt Count 315 Th/cmm (150-400) 08/24/18 14:41 MPV 8.1 fl 08/24/18 14:41 Neutrophils % 46.9 % (40.0-80.0) 08/24/18 14:41 Lymphocytes % 36.6 % (20.0-50.0) 08/24/18 14:41 Monocytes % 11.9 % (2.0-10.0) H 08/24/18 14:41 Eosinophils % 3.5 % (0.0-5.0) 08/24/18 14:41 Basophils % 1.1 % (0.0-2.0) 08/24/18 14:41 PT 9.9 SECONDS (9.5-11.5) 08/26/18 04:40 INR 0.95 (0.5-1.4) 08/26/18 04:40 D-Dimer 380 ng/mL (100-400) 08/24/18 14:41 Sodium 132 mEq/L (136-145) L 08/24/18 14:41 Potassium 4.5 mEq/L (3.5-5.1) 08/24/18 14:41 Chloride 97 mEq/L (98-107) L 08/24/18 14:41 Carbon Dioxide 26.0 mEq/L (21.0-31.0) 08/24/18 14:41 Anion Gap 13.5 (7.0-16.0) 08/24/18 14:41 BUN 16 mg/dL (7-25) 08/24/18 14:41 Creatinine 0.8 mg/dL (0.6-1.2) 08/24/18 14:41 Est GFR ( Amer) > 60.0 ml/min (>90) 08/24/18 14:41 Est GFR (Non-Af Amer) > 60.0 ml/min 08/24/18 14:41 BUN/Creatinine Ratio 20.0 08/24/18 14:41 Glucose 344 mg/dL (70-105) H 08/24/18 14:41 POC Glucose 203 MG/DL (70 - 105) H 08/27/18 21:02 Calcium 9.5 mg/dL (8.6-10.3) 08/24/18 14:41 Total Bilirubin 0.5 mg/dL (0.3-1.0) 08/24/18 14:41 AST 13 U/L (13-39) 08/24/18 14:41 ALT 17 U/L (7-52) 08/24/18 14:41 Alkaline Phosphatase 66 U/L (34-104) 08/24/18 14:41 Creatine Kinase 70 U/L (30-223) 08/24/18 14:41 Troponin I < 0.01 ng/mL (0.01-0.05) L 08/25/18 16:30 B-Natriuretic Peptide 11.7 pg/mL (5.0-100.0) 08/24/18 14:41 Total Protein 7.6 gm/dL (6.0-8.3) 08/24/18 14:41 Albumin 4.2 gm/dL (3.7-5.3) 08/24/18 14:41 Globulin 3.4 gm/dL 08/24/18 14:41 Albumin/Globulin Ratio 1.2 (1.0-1.8) 08/24/18 14:41 Triglycerides 248 mg/dL (<150) H 08/24/18 14:41 Cholesterol 175 mg/dL (<200) 08/24/18 14:41 LDL Cholesterol Direct 98 mg/dL (75-193) 08/24/18 14:41 HDL Cholesterol 38 mg/dL (23-92) 08/24/18 14:41 Amylase 56 U/L (29-103) 08/25/18 08:59 Lipase 101 U/L (11-82) H 08/25/18 08:59 TSH 2.29 uIU/ml (0.34-5.60) 08/25/18 08:59 Serum , Qual NEGATIVE (NEGATIVE) 08/24/18 14:41 - Physical Exam Vitals and I&O: Vital Signs Temp 97.7 F 08/27/18 16:00 Pulse 94 08/27/18 16:00 Resp 18 08/27/18 23:00 BP 123/67 08/27/18 16:00 Pulse Ox 100 08/27/18 16:00 Intake & Output 08/27/18 08/27/18 08/28/18 06:59 18:59 06:59 Intake Total 100 1400 Balance 100 1400 Weight (lbs) 56.245 kg 58.967 kg Intake: Oral 100 1400 Other: # Voids 3 5 # Bowel Movements 0 0 Weight Source Bedscale Bedscale Active Medications: Current Medications Aspirin (Aspirin Chewable) 81 mg PO DAILY [facility] Stop: 10/24/18 08:59 Last Admin: 08/27/18 08:30 Dose: Not Given Dicyclomine HCl (Bentyl) 10 mg PO Q6H PRN PRN Reason: ABDOMINAL PAIN/SPASM Stop: 10/23/18 19:58 Last Admin: 08/24/18 20:15 Dose: 10 mg Gabapentin (Neurontin) 300 mg PO DAILY [facility] Stop: 10/24/18 08:59 Last Admin: 08/27/18 08:30 Dose: Not Given Glyburide (Diabeta) 10 mg PO BID [facility] Stop: 10/24/18 08:59 Last Admin: 08/27/18 16:44 Dose: 10 mg Insulin Aspart (Novolog Insulin Sliding Scale) 0 units SUBQ ACHS [facility]; Protocol Stop: 10/24/18 11:29 Last Admin: 08/27/18 21:13 Dose: 4 units Lisinopril (Zestril) 5 mg PO DAILY [facility] Stop: 10/24/18 08:59 Last Admin: 08/27/18 08:30 Dose: Not Given Lorazepam (Ativan) 0.5 mg IVP Q8H PRN; Protocol PRN Reason: Anxiety Stop: 10/24/18 19:29 Last Admin: 08/26/18 15:42 Dose: 0.5 mg Morphine Sulfate (Morphine) 1 mg IV Q6H PRN PRN Reason: Abdominal Cramping Stop: 10/24/18 18:59 Last Admin: 08/27/18 21:11 Dose: 1 mg Pantoprazole Sodium (Protonix) 40 mg IVP DAILY [facility] Stop: 10/26/18 08:59 Last Admin: 08/27/18 08:39 Dose: 40 mg General: Alert, Oriented x3, No acute distress HEENT: Atraumatic, PERRLA, EOMI Neck: Supple Cardiovascular: Regular rate, Normal S1, Normal S2 Lungs: Clear to auscultation Abdomen: Bowel sounds, Soft Extremities: no Clubbing, no Cyanosis, no Edema Assessment/Plan - Assessment Assessment: chest pain ACS ruled out diabetes mellitus hypertension hyperlipidemia cholelithiasis noted on US abd mild to moderate gastritis anxiety disorder - Plan Plan: will dc home patient to follow up in 3-5 days prescription for protonix 40mg PO given patient has pain med[facility] at [facility] Nutritional Asmnt/Malnutr-PDOC - Dietary Evaluation Malnutrition Findings (Please click <Entered> for more info): Nutritional Asmnt/Malnutrition Start: 08/25/18 14: 36 Text: Status: Complete Freq: Protocol: Document 08/25/18 14:36 SUDARSHAN (Rec: 08/25/18 14:52 SUDARSHAN FRIAS) Nutritional Asmnt/Malnutrition Patient General Information Nutritional Screening High Risk Consult Diagnosis chest pain Pertinent Medical Hx/Surgical Hx DM, HTN, hyperlipidemia Subjective Information Consult received for diabetic [facility] blood super at admission. Pt eating lunch and appeared to have finished 90-100% at time of visit. Pt states she likes chamomile tea and dislikes pork. Pt states she has insulin at home, but doesn 't take it and tries to watch her carbohydrate intake at home. Provided education on carbohydrate counting to pt. Per EMR, pt finished 100% breakfast today. Current Diet Order/ Nutrition Support CCHO 45 gm Pertinent Medications diabeta, novolog Pertinent Labs 08/25: POC 398 08/24: glucose 344, Na 132, Cl 97, triglycerides 248 Nutritional Hx/Data Height 1.5 m Height (Calculated Centimeters) 149.9 Current Weight (lbs) 54.431 kg Weight (Calculated Kilograms) 54.4 Weight (Calculated Grams) 20466.1 [place] Body Weight 98 lb Body Mass Index (BMI) 24.2 Weight Status Approriate GI Symptoms GI Symptoms None Last BM none noted Difficult in: None Food Allergies No Usual diet at home Pt states she tries to eat healthy and control her carbohydrate intake Skin Integrity/Comment: intact, maurice 20 Current %PO Good (75-100%) Estimated Nutritional Goals BEE in Kcals: Using Current wt Calories/Kcals/Kg 25-30 Kcals Calculated 6127-1669 Protein: Using Current wt Protein g/k.8-1 Protein Calculated 44-55 g Fluid: ml 8074-2045 (1 ml/kcal) Nutritional Problem 1. Problem Problem Altered nutrition related lab values Etiology hyperglycemia, hx of DM, electrolyte imbalance Signs/Symptoms: POC 398, glucose 344, Na 132, Cl 97 Malnutrition Alert Is there a minimum of two criteria No selected? Query Text:Check all the applicable criteria. A minimum of two criteria are recommended for diagnosis of either severe or non-severe malnutrition. Malnutrition Related to Morbid Obesity Malnutrition related to morbid obesity No Intervention/Recommendation Comments 1. Continue with [facility] 45 gm diet as ordered d/t elevated bs. Diabetic education provided to pt. Pt verbalized understanding. Diabetic diet handouts given to pt. 2. MD to replace electrolytes as needed 3. Monitor PO intake, wt, labs and skin integrity 4. F/U as moderate risk in 3-5 days, 08/28-08/30 Expected Outcomes/Goals Expected Outcomes/Goals 1. PO intake to meet at least 75% of all meals 2. Wt stability, skin to remain intact, labs to approach normal limits Reviewd by Jacqui Evangelista RD
[2018-08-28] MEDS: INSULIN ASPART SLIDING SCALE 100 UNITS/ML UNIT SUBQ SCH ×2 (08:02→12:18)
--- NOTE | 2018-08-28 08:18 | GI Progress Note ---
Subjective - Review of Systems Service Date: 08/28/18 Events since last encounter: No events Subjective: Better . Still C/O LUQ discomfort "It is there for a long time" Objective - Results Result Diagrams: 08/24/18 14:41 08/24/18 14:41 Recent Labs: Laboratory Last Values WBC 6.9 Th/cmm (4.8-10.8) 08/24/18 14:41 RBC 5.02 Mil/cmm (3.80-5.10) 08/24/18 14:41 Hgb 14.2 gm/dL (12-16) 08/24/18 14:41 Hct 43.2 % (41.0-60) 08/24/18 14:41 MCV 85.9 fl (81-100) 08/24/18 14:41 MCH 28.2 pg (27.0-31.0) 08/24/18 14:41 MCHC Differential 32.8 pg (28.0-36.0) 08/24/18 14:41 RDW 12.0 % (11.5-20.0) 08/24/18 14:41 Plt Count 315 Th/cmm (150-400) 08/24/18 14:41 MPV 8.1 fl 08/24/18 14:41 Neutrophils % 46.9 % (40.0-80.0) 08/24/18 14:41 Lymphocytes % 36.6 % (20.0-50.0) 08/24/18 14:41 Monocytes % 11.9 % (2.0-10.0) H 08/24/18 14:41 Eosinophils % 3.5 % (0.0-5.0) 08/24/18 14:41 Basophils % 1.1 % (0.0-2.0) 08/24/18 14:41 PT 9.9 SECONDS (9.5-11.5) 08/26/18 04:40 INR 0.95 (0.5-1.4) 08/26/18 04:40 D-Dimer 380 ng/mL (100-400) 08/24/18 14:41 Sodium 132 mEq/L (136-145) L 08/24/18 14:41 Potassium 4.5 mEq/L (3.5-5.1) 08/24/18 14:41 Chloride 97 mEq/L (98-107) L 08/24/18 14:41 Carbon Dioxide 26.0 mEq/L (21.0-31.0) 08/24/18 14:41 Anion Gap 13.5 (7.0-16.0) 08/24/18 14:41 BUN 16 mg/dL (7-25) 08/24/18 14:41 Creatinine 0.8 mg/dL (0.6-1.2) 08/24/18 14:41 Est GFR ( Amer) > 60.0 ml/min (>90) 08/24/18 14:41 Est GFR (Non-Af Amer) > 60.0 ml/min 08/24/18 14:41 BUN/Creatinine Ratio 20.0 08/24/18 14:41 Glucose 344 mg/dL (70-105) H 08/24/18 14:41 POC Glucose 213 MG/DL (70 - 105) H 08/28/18 05:57 Calcium 9.5 mg/dL (8.6-10.3) 08/24/18 14:41 Total Bilirubin 0.5 mg/dL (0.3-1.0) 08/24/18 14:41 AST 13 U/L (13-39) 08/24/18 14:41 ALT 17 U/L (7-52) 08/24/18 14:41 Alkaline Phosphatase 66 U/L (34-104) 08/24/18 14:41 Creatine Kinase 70 U/L (30-223) 08/24/18 14:41 Troponin I < 0.01 ng/mL (0.01-0.05) L 08/25/18 16:30 B-Natriuretic Peptide 11.7 pg/mL (5.0-100.0) 08/24/18 14:41 Total Protein 7.6 gm/dL (6.0-8.3) 08/24/18 14:41 Albumin 4.2 gm/dL (3.7-5.3) 08/24/18 14:41 Globulin 3.4 gm/dL 08/24/18 14:41 Albumin/Globulin Ratio 1.2 (1.0-1.8) 08/24/18 14:41 Triglycerides 248 mg/dL (<150) H 08/24/18 14:41 Cholesterol 175 mg/dL (<200) 08/24/18 14:41 LDL Cholesterol Direct 98 mg/dL (75-193) 08/24/18 14:41 HDL Cholesterol 38 mg/dL (23-92) 08/24/18 14:41 Amylase 56 U/L (29-103) 08/25/18 08:59 Lipase 101 U/L (11-82) H 08/25/18 08:59 TSH 2.29 uIU/ml (0.34-5.60) 08/25/18 08:59 Serum , Qual NEGATIVE (NEGATIVE) 08/24/18 14:41 - Physical Exam Vitals and I&O: Vital Signs Temp 97.7 F 08/28/18 07:59 Pulse 92 08/28/18 07:59 Resp 18 08/28/18 07:59 BP 122/78 08/28/18 07:59 Pulse Ox 100 08/28/18 07:59 Intake & Output 08/27/18 08/28/18 08/28/18 18:59 06:59 18:59 Intake Total 1400 400 Balance 1400 400 Weight (lbs) 58.967 kg 59.421 kg Intake: Oral 1400 400 Other: # Voids 5 # Bowel Movements 0 Weight Source Bedscale Bedscale Active Medications: Current Medications Aspirin (Aspirin Chewable) 81 mg PO DAILY [facility] Stop: 10/24/18 08:59 Last Admin: 08/27/18 08:30 Dose: Not Given Dicyclomine HCl (Bentyl) 10 mg PO Q6H PRN PRN Reason: ABDOMINAL PAIN/SPASM Stop: 10/23/18 19:58 Last Admin: 08/24/18 20:15 Dose: 10 mg Gabapentin (Neurontin) 300 mg PO DAILY [facility] Stop: 10/24/18 08:59 Last Admin: 08/27/18 08:30 Dose: Not Given Glyburide (Diabeta) 10 mg PO BID [facility] Stop: 10/24/18 08:59 Last Admin: 08/27/18 16:44 Dose: 10 mg Insulin Aspart (Novolog Insulin Sliding Scale) 0 units SUBQ ACHS [facility]; Protocol Stop: 10/24/18 11:29 Last Admin: 08/28/18 08:02 Dose: 4 units Lisinopril (Zestril) 5 mg PO DAILY [facility] Stop: 10/24/18 08:59 Last Admin: 08/27/18 08:30 Dose: Not Given Lorazepam (Ativan) 0.5 mg IVP Q8H PRN; Protocol PRN Reason: Anxiety Stop: 10/24/18 19:29 Last Admin: 08/26/18 15:42 Dose: 0.5 mg Morphine Sulfate (Morphine) 1 mg IV Q6H PRN PRN Reason: Abdominal Cramping Stop: 10/24/18 18:59 Last Admin: 08/27/18 21:11 Dose: 1 mg Pantoprazole Sodium (Protonix) 40 mg IVP DAILY [facility] Stop: 10/26/18 08:59 Last Admin: 08/27/18 08:39 Dose: 40 mg General: Alert, Oriented x3, No acute distress HEENT: Atraumatic, PERRLA, EOMI Neck: Supple Cardiovascular: Regular rate, Normal S1, Normal S2 Lungs: Clear to auscultation Abdomen: Bowel sounds, Soft Extremities: no Clubbing, no Cyanosis, no Edema Assessment/Plan - Assessment Assessment: Abd pain - Plan Plan: 1. Abdominal pain Most likely combination of gastritis +/_ IBS PPI and treat HP if positive She is on bentyl 10 Qid will change to 20 mg bid OPT colonoscopy
[2018-08-28] MEDS: Aspirin 81mg Chewable Tab PO SCH (08:39)
[2018-08-28] MEDS ORDERED: Dicyclomine 10 mg Cap PO SCH (09:00)
--- NOTE | 2018-08-29 15:47 | Discharge Summary ---
DATE OF DISCHARGE: 08/28/2018 PRELIMINARY DIAGNOSES: 1. Chest pain, rule out acute coronary syndrome. 2. Diabetes mellitus. 3. Hypertension. 4. Hyperlipidemia. 5. Abdominal pain. 6. Anxiety disorder. 7. Hyponatremia. DISCHARGE DIAGNOSES: 1. Chest pain, acute coronary syndrome ruled out. 2. Diabetes mellitus. 3. Hypertension. 4. Hyperlipidemia. 5. [id number] gastritis. 6. Anxiety disorder. HISTORY OF PRESENT ILLNESS: This is a 53-year-old female who presents to [facility] ER for a 2-day history of chest pain along with dyspnea. The patient denies any neck pain. Admits to abdominal pain. No nausea or vomiting. No diarrhea. The patient has a previous history of diabetes mellitus, hypertension, hyperlipidemia. Her initial lab work done in the ER revealed a white count of 6.9, hemoglobin of 14.2, hematocrit 43.2, platelets 315. Sodium was 132, potassium 4.5, BUN and creatinine 16/0.8, glucose was 344. Her initial troponin level was less than 0.01. Cholesterol was 175, triglycerides 248, LDL 98, HDL 38. The patient was subsequently admitted for further evaluation and treatment. HOSPITAL COURSE: The patient improved during her hospital stay. Chest pain, acute coronary syndrome was ruled out. Serial troponin levels were negative. The patient was seen and evaluated by Cardiology. Please see dictated report. The patient was seen by GI. Upper endoscopy was ordered revealing mild to moderate gastritis. The patient was started on Protonix IV 40 mg. The patient was later discharged on 40 mg of Protonix daily. The patient also underwent both an ultrasound of her abdomen as well as CT of the abdomen. Please see dictated report. She was subsequently discharged in stable condition to follow up with her regular physician. The patient was given a prescription of Protonix 40 mg once daily. JOB# [id number]
== END 2018-08-28 13:10 | disposition home or self-care (01) | DRG 243 ==
LOC: ER 13:40 → TELE 17:39
PROVIDERS: ADMIT Family Medicine; ATTEND Family Medicine
PROC: 0DB68ZX Excision of Stomach, Via Natural or Artificial Opening Endoscopic, Diagnostic (ICD-10-PCS; principal; 2018-08-26)
DX: K21.9 Gastro-esophageal reflux disease without esophagitis (principal); E11.00 Type 2 diabetes mellitus with hyperosmolarity without nonketotic hyperglycemic-hyperosmolar coma (NKHHC); K29.00 Acute gastritis without bleeding; E11.65 Type 2 diabetes mellitus with hyperglycemia; K80.80 Other cholelithiasis without obstruction; F32.9 Major depressive disorder, single episode, unspecified; R10.12 Left upper quadrant pain; F41.9 Anxiety disorder, unspecified; I20.9 Angina pectoris, unspecified; E87.1 Hypo-osmolality and hyponatremia; I10 Essential (primary) hypertension; R00.0 Tachycardia, unspecified; E78.5 Hyperlipidemia, unspecified; Z83.3 Family history of diabetes mellitus; Z82.49 Family history of ischemic heart disease and other diseases of the circulatory system; Z79.84 Long term (current) use of oral hypoglycemic drugs; Z88.0 Allergy status to penicillin
CPT/HCPCS: 36415-UA; 71045-TC; 76700-TC; 80053-TC; 80061-TC; 82150-TC; 82550-TC; 82948-90; 83036-90; 83690-TC; 83880-TC; 84443-TC; 84484-TC; 84703-TC; 85025-TC; 85379-TC; 85610-TC; 87338-TC; 93005; 94760; C9113; J1815; J2060; J2270; J2704; Q9967; Z7610

== ENCOUNTER 2018-12-11 23:03 | Inpatient (IN) | payer MEDICAID ==
--- NOTE | 2018-12-11 23:43 | ED Physician Chart ---
ED Chief Complaint/HPI - Patient Information Date Seen:: 12/11/18 Time Seen:: 23:41 Chief Complaint:: dysuria History of Present Illness:: 53 yr old female with dysuria for 4 days Allergies:: Allergies Allergy/AdvReac Type Severity Reaction Status Date / Time Penicillins [PCN] Allergy Verified 12/11/18 23:33 Vitals:: Vital Signs - 8 hr 12/11/18 23:15 Temp 97.9 F HR 98 RR 18 BP 116/72 O2 Sat % 99 ED Review of Systems - Review of Systems General/Constitutional: No fever, No chills, No weight loss, No weakness, No diaphoresis, No edema, No loss of appetite Skin: No skin lesions, No rash, No bruising Head: No headache, No light-headedness Eyes: No loss of vision, No pain, No diplopia ENT: No earache, No nasal drainage, No sore throat, No tinnitus Neck: No neck pain, No swelling, No thyromegaly, No stiffness, No mass noted Cardio Vascular: No chest pain, No palpitations, No PND, No orthopnea, No edema Pulmonary: No SOB, No cough, No sputum, No wheezing GI: No nausea, No vomiting, No diarrhea, No pain, No melena, No hematochezia, No constipation, No hematemesis G/U: No dysuria, No frequency, No hematuria Musculoskeletal: No bone or joint pain, No back pain, No muscle pain Endocrine: No polyuria, No polydipsia Psychiatric: No prior psych history, No depression, No anxiety, No suicidal ideation Hematopoietic: No bruising, No lymphadenopathy Allergic/Immuno: No urticaria, No angioedema Neurological: No syncope, No focal symptoms, No weakness, No paresthesia, No headache, No seizure, No dizziness, No confusion, No vertigo ED Past Medical History - Past Medical History Past Medical History: HTN, DM, ESRD, Other (anxiety) Family Medical History - Family Member Mother History Unknown: Yes Ethnicity: Hx Family Cancer: No Hx Family Congestive Heart Failure: No Hx Family Hypertension: No Hx Family Diabetes: No Hx Family Seizures: No Hx Family Dementia: No Hx Family HIV: No Hx Family Psychiatric Problems: No ED Physical Exam - Physical Examination General/Constitutional: Awake, Well-developed, well-nourished, Alert, No distress, GCS 15, Non-toxic appearing, Ambulatory Head: Atraumatic Eyes: Lids, conjuctiva normal, PERRL, EOMI Skin: Nl inspection, No rash, No skin lesions, No ecchymosis, Well hydrated, No lymphadenopathy ENMT: External ears, nose nl, Nasal exam nl, Lips, teeth, gums nl Neck: Nontender, Full ROM w/o pain, No JVD, No nuchal rigidity, No bruit, No mass, No stridor Respiratory: Nl effort/Exclusion, Clear to Auscultation, No Wheeze/Rhonchi/Rales Cardio Vascular: RRR, No murmur, gallop, rubs, NL S1 S2 GI: No tenderness/rebounding/guarding, No organomegaly, No hernia, Normal BS's, Nondistended, No mass/bruits, No McBurney tenderness : No CVA tenderness Extremities: No tenderness or effusion, Full ROM, normal strength in all extremities, No edema, Normal digits & nails Neuro/Psych: Alert/oriented, DTR's symmetric, Normal sensory exam, Normal motor strength, Judgement/insight normal, Mood normal, Normal gait, No focal deficits Misc: Normal back, No paraspinal tenderness ED Assessment - Assessment General Assessment: dysuria ED Septic Shock - . Is Septic Shock (SBP<90, OR Lactate>4 mmol\L) present?: No - <6hrs of presentation: Vital Signs: Vital Signs - 8 hr 12/11/18 23:15 Temp 97.9 F HR 98 RR 18 BP 116/72 O2 Sat % 99 ED Reassessment (Disposition) - Reassessment Reassessment:: dysuria - Diagnosis Diagnosis:: dysuria - Aftercare/Follow up Instructions Aftercare/Follow-Up Instructions:: Counseled pt regarding lab results/diagnosis & need follow up - Patient Disposition Discharge/Transfer:: Home Condition at Disposition:: Stable
[2018-12-11 23:58] LABS: URINE SOURCE CLEAN C
[2018-12-12] LABS: % BASOPHILS 0.6 % (0.0-2.0); % EOSINOPHILS 1.4 % (0.0-5.0); % LYMPHOCYTES 26.2 % (20.0-50.0); % MONOCYTES 11.3 % (2.0-10.0); % NEUTROPHILS 60.5 % (40.0-80.0); BASOPHILE ABSOLUTE 0.1 Th/cumm (0-0.2); EOSINOPHILE ABSOLUTE 0.1 Th/cmm (0.1-0.4); HEMATOCRIT 36.8 % (41.0-60); HEMOGLOBIN 12.2 gm/dL (12-16); LYMPHOCYTE ABSOLUTE 2.6 Th/cmm (1.5-3.0); MEAN CELL VOLUME 85.1 fl (81-100); MEAN CORPUSCULAR HEMOGLOBIN 28.2 pg (27.0-31.0); MEAN CORPUSCULAR HGB CONC 33.1 pg (28.0-36.0); MEAN PLATELET VOLUME 8.4 fl; MONOCYTE ABSOLUTE 1.1 Th/cmm (0.3-1.0); PLATELET COUNT 271 Th/cmm (150-400); RED BLOOD COUNT 4.32 Mil/cmm (3.80-5.10); RED CELL DISTRIBUTION WIDTH 11.8 % (11.5-20.0); WHITE BLOOD COUNT 9.9 Th/cmm (4.8-10.8)
[2018-12-12 00:08] LABS: URINE BILIRUBIN NEGATIVE (NEGATIVE); URINE BLOOD TRACE (NEGATIVE); URINE GLUCOSE (UA) >=1000 mg/dL (NEGATIVE); URINE KETONE NEGATIVE (NEGATIVE); URINE LEUKOCYTE ESTERASE NEGATIVE (NEGATIVE); URINE MICROSCOPIC INDICATED? YES; URINE NITRATE NEGATIVE (NEGATIVE); URINE PROTEIN NEGATIVE (NEGATIVE); URINE UROBILINOGEN 0.2 E.U./dL (0.2 - 1.0)
[2018-12-12 00:10] LABS: URINE CLARITY HAZY (CLEAR); URINE COLOR YELLOW
[2018-12-12 00:17] LABS: URINE BACTERIA FEW /hpf (NONE SEEN); URINE EPITHELIAL CELLS FEW /lpf (FEW); URINE WBC 25-50 /hpf (0-5)
[2018-12-12 00:18] LABS: ALB/GLOB RATIO 1.8 (1.0-1.8); ALBUMIN 3.9 gm/dL (3.7-5.3); ALKALINE PHOSPHATASE 100 U/L (34-104); ANION GAP 15.5 (7.0-16.0); BILIRUBIN,TOTAL 0.4 mg/dL (0.3-1.0); BUN - UREA NITROGEN 12 mg/dL (7-25); CALCIUM SERUM 8.6 mg/dL (8.6-10.3); CARBON DIOXIDE 22.5 mEq/L (21.0-31.0); CHLORIDE 94 mEq/L (98-107); CREATININE - SERUM 0.9 mg/dL (0.6-1.2); GFR AFRICAN-AMERICAN > 60.0 ml/min (>90); GFR NON AFRICAN-AMERICAN > 60.0 ml/min; SGOT 8 U/L (13-39); SGPT/ALT 16 U/L (7-52); SODIUM SERUM 128 mEq/L (136-145); TOTAL PROTEIN,SERUM 6.1 gm/dL (6.0-8.3)
[2018-12-12 00:23] LABS: GLUCOSE 630 mg/dL (70-105)
[2018-12-12] MEDS ORDERED: Sodium Chloride 0.9% 1,000 ML IV ONE ×2 (00:33→01:10)
[2018-12-12] MEDS ORDERED: Levofloxacin 500mg/100mL 500 MG/100 ML BAG IV ONE ×2 (00:35→00:54)
[2018-12-12] MEDS ORDERED: INSULIN HUMAN REGULAR 100 UNITS/ML UNIT IVP ONE (02:34)
[2018-12-12] MEDS ORDERED: INSULIN HUMAN REGULAR 100 UNITS/ML UNIT ONE (02:39)
[2018-12-12] MEDS ORDERED: Hydrocodone/APAP 5mg/325mg Tab PO ONE (03:55)
[2018-12-12] MEDS ORDERED: Hydrocodone/APAP 5mg/325mg Tab ONE (04:07)
[2018-12-12] MEDS ORDERED: Hydrocodone/APAP 5mg/325mg Tab PO PRN (04:16)
[2018-12-12 05:23] LABS: CHOLESTEROL 109 mg/dL (<200); HDL -HIGH DENSITY LIPOPROTEIN 35 mg/dL (23-92); TRIGLYCERIDES 211 mg/dL (<150)
[2018-12-12] MEDS ORDERED: INSULIN HUMAN REGULAR 100 UNITS/ML UNIT SUBQ SCH (07:30)
--- NOTE | 2018-12-12 08:25 | History and Physical ---
History of Present Illness - HPI Chief Complaint: dysuria, hyperglycemia, abdominal pain HPI: 53 y/o female who presents to [facility] ER for 4 day history of dysuria. Patient states that symptoms began 4 days prior to admission with increase frequency, urgency and dysuria. Patient has a previous medical history of Diabetes Mellitus, HTN Hyponatremia, Patient was found to have the following labwork.... Na 128 K 4.0 Bun/Cr 12/0.9 glu 630 UA glucose >1000 WBC 25-50 WBC 9.9 H/H 12.2/36.8 plat 271K patient to be admitted for further evaluation. Vital Signs: Last Vital Signs Temp 99.1 F 12/12/18 05:16 Pulse 95 12/12/18 05:16 Resp 18 12/12/18 05:16 BP 140/75 12/12/18 05:16 Pulse Ox 98 12/12/18 05:16 Past Medical History Cardiovascular: Report: HTN, Hyperlipidemia Pulmonary: Report: No Pertinent Hx GOLF CADDIE: Report: Peripheral neuropathy GI: Report: GERD Psych: Report: Anxiety Musculoskeletal: Report: No Pertinent Hx Rheumatologic: Report: No pertinent Hx Infectious Disease: Report: No Pertinent Hx Renal/: Report: UTI Endocrine: Report: Diabetes Dermatology: Report: No Pertinent Hx - Past Surgical History Past Surgical History: No pertinent Hx Family Medical History - Family Member Mother History Unknown: Yes Ethnicity: Hx Family Cancer: No Hx Family Congestive Heart Failure: No Hx Family Hypertension: No Hx Family Diabetes: No Hx Family Seizures: No Hx Family Dementia: No Hx Family HIV: No Hx Family Psychiatric Problems: No Social History Smoke: No Alcohol: None Drugs: None Lives: With Family - Medications Home Medications: Home Medication Medication Instructions Recorded Type Gabapentin 600 mg PO DAILY 08/24/18 History Lisinopril 5 mg PO DAILY 08/24/18 History glyBURIDE [Diabeta] 10 mg PO BID 08/24/18 History Lorazepam [Ativan] 0.5 mg PO HS 11/19/18 History Pantoprazole [Protonix] 40 mg PO DAILY 11/19/18 History - Allergies Allergies/Adverse Reactions: Allergies Allergy/AdvReac Type Severity Reaction Status Date / Time Penicillins [PCN] Allergy Verified 12/11/18 23:33 Review of Systems - Review of Systems Constitutional: Report: No Significant Eyes: Report: No Significant ENT: Report: No Significant Respiratory: Report: No Significant Cardiovascular: Report: No Significant Gastrointestinal: Report: No Significant Genitourinary: Report: No Significant Musculoskeletal: Report: No Significant Skin: Report: No Significant Neurological: Report: No Significant Physical Exam - Physical Exam HEENT: Report: Ears Nose Throat within normal limits, Pharnyx within normal limits Neck: Report: Within normal limits Cardiovascular Systems: Report: +s1/s2 noted, Regular, Rate and Rhythm Respiratory: Report: Breath Sounds are within normal limits Abdomen: Report: Non-tender to palpation Back: Report: Inspection of back is within normal limits. Extremities: Report: Non-tender to palpation. Skin: Report: Color of skin is within normal limits Neuro/Psych: Report: Mood affect is within normal limits - Lab Results All Lab Results last 24 hours: Laboratory Results - last 24 hr 12/11/18 12/11/18 12/11/18 23:25 23:50 23:50 WBC 9.9 RBC 4.32 Hgb 12.2 Hct 36.8 L MCV 85.1 MCH 28.2 MCHC Differential 33.1 RDW 11.8 Plt Count 271 MPV 8.4 Neutrophils % 60.5 Lymphocytes % 26.2 Monocytes % 11.3 H Eosinophils % 1.4 Basophils % 0.6 Sodium 128 L Potassium 4.0 Chloride 94 L Carbon Dioxide 22.5 Anion Gap 15.5 BUN 12 Creatinine 0.9 Est GFR ( Amer) > 60.0 Est GFR (Non-Af Amer) > 60.0 BUN/Creatinine Ratio 13.3 Glucose 630 H* POC Glucose Calcium 8.6 Total Bilirubin 0.4 AST 8 L ALT 16 Alkaline Phosphatase 100 Total Protein 6.1 Albumin 3.9 Globulin 2.2 Albumin/Globulin Ratio 1.8 Triglycerides Cholesterol LDL Cholesterol Direct HDL Cholesterol TSH Urine Source CLEAN C Urine Color YELLOW Urine Clarity HAZY Urine pH 6.0 Ur Specific [place] <= 1.005 Urine Protein NEGATIVE Urine Glucose (UA) >=1000 H Urine Ketones NEGATIVE Urine Blood TRACE Urine Nitrate NEGATIVE Urine Bilirubin NEGATIVE Urine Urobilinogen 0.2 Ur Leukocyte Esterase NEGATIVE Urine RBC 2-5 Urine WBC 25-50 H Ur Epithelial Cells FEW Urine Bacteria FEW 12/11/18 12/11/18 12/12/18 23:50 23:50 01:16 WBC RBC Hgb Hct MCV MCH MCHC Differential RDW Plt Count MPV Neutrophils % Lymphocytes % Monocytes % Eosinophils % Basophils % Sodium Potassium Chloride Carbon Dioxide Anion Gap BUN Creatinine Est GFR ( Amer) Est GFR (Non-Af Amer) BUN/Creatinine Ratio Glucose POC Glucose 466 H* Calcium Total Bilirubin AST ALT Alkaline Phosphatase Total Protein Albumin Globulin Albumin/Globulin Ratio Triglycerides 211 H Cholesterol 109 LDL Cholesterol Direct 67 L HDL Cholesterol 35 TSH 1.34 Urine Source Urine Color Urine Clarity Urine pH Ur Specific [place] Urine Protein Urine Glucose (UA) Urine Ketones Urine Blood Urine Nitrate Urine Bilirubin Urine Urobilinogen Ur Leukocyte Esterase Urine RBC Urine WBC Ur Epithelial Cells Urine Bacteria 12/12/18 12/12/18 02:22 05:40 WBC RBC Hgb Hct MCV MCH MCHC Differential RDW Plt Count MPV Neutrophils % Lymphocytes % Monocytes % Eosinophils % Basophils % Sodium Potassium Chloride Carbon Dioxide Anion Gap BUN Creatinine Est GFR ( Amer) Est GFR (Non-Af Amer) BUN/Creatinine Ratio Glucose POC Glucose 404 H 171 H Calcium Total Bilirubin AST ALT Alkaline Phosphatase Total Protein Albumin Globulin Albumin/Globulin Ratio Triglycerides Cholesterol LDL Cholesterol Direct HDL Cholesterol TSH Urine Source Urine Color Urine Clarity Urine pH Ur Specific [place] Urine Protein Urine Glucose (UA) Urine Ketones Urine Blood Urine Nitrate Urine Bilirubin Urine Urobilinogen Ur Leukocyte Esterase Urine RBC Urine WBC Ur Epithelial Cells Urine Bacteria - Assessment Assessment: uti abd pain GERD Anxiety neuropathy diabetes mellitus htn - Plan Plan: will admit, continue current meds.
[2018-12-12] MEDS ORDERED: Dextrose 50% 50 mL Abboject IVP PRN (08:28)
[2018-12-12] MEDS ORDERED: GLUCAGON HCl 1 MG KIT IM PRN (08:28)
[2018-12-12 09:53] LABS: % BASOPHILS 0.7 % (0.0-2.0); % EOSINOPHILS 1.5 % (0.0-5.0); % LYMPHOCYTES 29.8 % (20.0-50.0); % MONOCYTES 8.8 % (2.0-10.0); % NEUTROPHILS 59.2 % (40.0-80.0); BASOPHILE ABSOLUTE 0.1 Th/cumm (0-0.2); EOSINOPHILE ABSOLUTE 0.1 Th/cmm (0.1-0.4); HEMATOCRIT 34.8 % (41.0-60); HEMOGLOBIN 11.6 gm/dL (12-16); LYMPHOCYTE ABSOLUTE 2.9 Th/cmm (1.5-3.0); MEAN CELL VOLUME 84.7 fl (81-100); MEAN CORPUSCULAR HEMOGLOBIN 28.2 pg (27.0-31.0); MEAN CORPUSCULAR HGB CONC 33.3 pg (28.0-36.0); MEAN PLATELET VOLUME 7.7 fl; MONOCYTE ABSOLUTE 0.9 Th/cmm (0.3-1.0); NEUTROPHILE ABSOLUTE 5.7 Th/cmm (1.8-8.0); PLATELET COUNT 252 Th/cmm (150-400); RED BLOOD COUNT 4.11 Mil/cmm (3.80-5.10); RED CELL DISTRIBUTION WIDTH 12.2 % (11.5-20.0); WHITE BLOOD COUNT 9.7 Th/cmm (4.8-10.8)
[2018-12-12 10:24] LABS: ALB/GLOB RATIO 1.5 (1.0-1.8); ALBUMIN 3.4 gm/dL (3.7-5.3); ALKALINE PHOSPHATASE 79 U/L (34-104); ANION GAP 11.1 (7.0-16.0); BILIRUBIN,TOTAL 0.3 mg/dL (0.3-1.0); BUN - UREA NITROGEN 10 mg/dL (7-25); CALCIUM SERUM 8.5 mg/dL (8.6-10.3); CARBON DIOXIDE 25.9 mEq/L (21.0-31.0); CHLORIDE 103 mEq/L (98-107); CHOLESTEROL 103 mg/dL (<200); CREATININE - SERUM 0.7 mg/dL (0.6-1.2); GFR AFRICAN-AMERICAN > 60.0 ml/min (>90); GFR NON AFRICAN-AMERICAN > 60.0 ml/min; HDL -HIGH DENSITY LIPOPROTEIN 32 mg/dL (23-92); SGOT 8 U/L (13-39); SGPT/ALT 13 U/L (7-52); SODIUM SERUM 136 mEq/L (136-145); TOTAL PROTEIN,SERUM 5.7 gm/dL (6.0-8.3); TRIGLYCERIDES 207 mg/dL (<150)
[2018-12-12 12:20] LABS: GLUCOSE 342 mg/dL (70-105)
[2018-12-12] MEDS: INSULIN LISPRO SLIDING SCALE 100 UNITS/ML UNIT SUBQ SCH ×3 (12:37→21:12)
[2018-12-12] MEDS: Hydrocodone/APAP 5mg/325mg Tab PO PRN ×2 (14:00→21:12)
[2018-12-12] MEDS: Levofloxacin 500mg/100mL 500 MG/100 ML BAG IV SCH (16:11)
[2018-12-13] MEDS ORDERED: Levofloxacin 500mg/100mL 500 MG/100 ML BAG IV SCH (03:00)
[2018-12-13] MEDS: Hydrocodone/APAP 5mg/325mg Tab PO PRN (04:40)
[2018-12-13 04:57] LABS: % EOSINOPHILS 1.9 % (0.0-5.0); % LYMPHOCYTES 35.5 % (20.0-50.0); % MONOCYTES 9.2 % (2.0-10.0); % NEUTROPHILS 51.4 % (40.0-80.0); BASOPHILE ABSOLUTE 0.2 Th/cumm (0-0.2); EOSINOPHILE ABSOLUTE 0.1 Th/cmm (0.1-0.4); HEMATOCRIT 37.2 % (41.0-60); HEMOGLOBIN 12.3 gm/dL (12-16); LYMPHOCYTE ABSOLUTE 2.7 Th/cmm (1.5-3.0); MEAN CELL VOLUME 84.9 fl (81-100); MEAN CORPUSCULAR HEMOGLOBIN 28.1 pg (27.0-31.0); MEAN CORPUSCULAR HGB CONC 33.1 pg (28.0-36.0); MEAN PLATELET VOLUME 8.6 fl; MONOCYTE ABSOLUTE 0.7 Th/cmm (0.3-1.0); PLATELET COUNT 259 Th/cmm (150-400); RED BLOOD COUNT 4.37 Mil/cmm (3.80-5.10); RED CELL DISTRIBUTION WIDTH 11.9 % (11.5-20.0)
[2018-12-13 05:03] LABS: WHITE BLOOD COUNT 7.7 Th/cmm (4.8-10.8)
[2018-12-13 05:31] LABS: ALB/GLOB RATIO 1.6 (1.0-1.8); ALBUMIN 3.8 gm/dL (3.7-5.3); ALKALINE PHOSPHATASE 75 U/L (34-104); ANION GAP 11.9 (7.0-16.0); BILIRUBIN,TOTAL 0.3 mg/dL (0.3-1.0); BUN - UREA NITROGEN 13 mg/dL (7-25); CALCIUM SERUM 9.2 mg/dL (8.6-10.3); CHLORIDE 101 mEq/L (98-107); CREATININE - SERUM 0.7 mg/dL (0.6-1.2); GFR AFRICAN-AMERICAN > 60.0 ml/min (>90); GFR NON AFRICAN-AMERICAN > 60.0 ml/min; GLUCOSE 244 mg/dL (70-105); POTASSIUM SERUM 3.9 mEq/L (3.5-5.1); SGOT 8 U/L (13-39); SGPT/ALT 13 U/L (7-52); SODIUM SERUM 138 mEq/L (136-145); TOTAL PROTEIN,SERUM 6.2 gm/dL (6.0-8.3)
[2018-12-13] MEDS: INSULIN LISPRO SLIDING SCALE 100 UNITS/ML UNIT SUBQ SCH ×4 (07:59→21:57)
--- NOTE | 2018-12-13 08:39 | General Progress Note ---
Subjective - Review of Systems Service Date: 12/13/18 Subjective: Awake, Alert, no acute distress. home less. tearful. still complains of abd pain. Objective - Results Result Diagrams: 12/13/18 04:40 12/13/18 04:40 Recent Labs: Laboratory Last Values WBC 7.7 Th/cmm (4.8-10.8) D 12/13/18 04:40 RBC 4.37 Mil/cmm (3.80-5.10) 12/13/18 04:40 Hgb 12.3 gm/dL (12-16) 12/13/18 04:40 Hct 37.2 % (41.0-60) L 12/13/18 04:40 MCV 84.9 fl (81-100) 12/13/18 04:40 MCH 28.1 pg (27.0-31.0) 12/13/18 04:40 MCHC Differential 33.1 pg (28.0-36.0) 12/13/18 04:40 RDW 11.9 % (11.5-20.0) 12/13/18 04:40 Plt Count 259 Th/cmm (150-400) 12/13/18 04:40 MPV 8.6 fl 12/13/18 04:40 Neutrophils % 51.4 % (40.0-80.0) 12/13/18 04:40 Lymphocytes % 35.5 % (20.0-50.0) 12/13/18 04:40 Monocytes % 9.2 % (2.0-10.0) 12/13/18 04:40 Eosinophils % 1.9 % (0.0-5.0) 12/13/18 04:40 Basophils % 2.0 % (0.0-2.0) 12/13/18 04:40 Sodium 138 mEq/L (136-145) 12/13/18 04:40 Potassium 3.9 mEq/L (3.5-5.1) 12/13/18 04:40 Chloride 101 mEq/L (98-107) 12/13/18 04:40 Carbon Dioxide 29.0 mEq/L (21.0-31.0) 12/13/18 04:40 Anion Gap 11.9 (7.0-16.0) 12/13/18 04:40 BUN 13 mg/dL (7-25) 12/13/18 04:40 Creatinine 0.7 mg/dL (0.6-1.2) 12/13/18 04:40 Est GFR ( Amer) > 60.0 ml/min (>90) 12/13/18 04:40 Est GFR (Non-Af Amer) > 60.0 ml/min 12/13/18 04:40 BUN/Creatinine Ratio 18.6 12/13/18 04:40 Glucose 244 mg/dL (70-105) H 12/13/18 04:40 POC Glucose 250 MG/DL (70 - 105) H 12/13/18 06:42 Calcium 9.2 mg/dL (8.6-10.3) 12/13/18 04:40 Total Bilirubin 0.3 mg/dL (0.3-1.0) 12/13/18 04:40 AST 8 U/L (13-39) L 12/13/18 04:40 ALT 13 U/L (7-52) 12/13/18 04:40 Alkaline Phosphatase 75 U/L (34-104) 12/13/18 04:40 Total Protein 6.2 gm/dL (6.0-8.3) 12/13/18 04:40 Albumin 3.8 gm/dL (3.7-5.3) 12/13/18 04:40 Globulin 2.4 gm/dL 12/13/18 04:40 Albumin/Globulin Ratio 1.6 (1.0-1.8) 12/13/18 04:40 Triglycerides 207 mg/dL (<150) H 12/12/18 09:50 Cholesterol 103 mg/dL (<200) 12/12/18 09:50 LDL Cholesterol Direct 62 mg/dL (75-193) L 12/12/18 09:50 HDL Cholesterol 32 mg/dL (23-92) 12/12/18 09:50 TSH 1.34 uIU/ml (0.34-5.60) 12/11/18 23:50 Urine Source CLEAN C 12/11/18 23:25 Urine Color YELLOW 12/11/18 23:25 Urine Clarity HAZY (CLEAR) 12/11/18 23:25 Urine pH 6.0 (4.6 - 8.0) 12/11/18 23:25 Ur Specific [place] <= 1.005 (1.005-1.030) 12/11/18 23:25 Urine Protein NEGATIVE mg/dL (NEGATIVE) 12/11/18 23:25 Urine Glucose (UA) >=1000 mg/dL (NEGATIVE) H 12/11/18 23:25 Urine Ketones NEGATIVE mg/dL (NEGATIVE) 12/11/18 23:25 Urine Blood TRACE (NEGATIVE) 12/11/18 23:25 Urine Nitrate NEGATIVE (NEGATIVE) 12/11/18 23:25 Urine Bilirubin NEGATIVE (NEGATIVE) 12/11/18 23:25 Urine Urobilinogen 0.2 E.U./dL (0.2 - 1.0) 12/11/18 23:25 Ur Leukocyte Esterase NEGATIVE (NEGATIVE) 12/11/18 23:25 Urine RBC 2-5 /hpf (0-5) 12/11/18 23:25 Urine WBC 25-50 /hpf (0-5) H 12/11/18 23:25 Ur Epithelial Cells FEW /lpf (FEW) 12/11/18 23:25 Urine Bacteria FEW /hpf (NONE SEEN) 12/11/18 23:25 - Physical Exam Vitals and I&O: Vital Signs Temp 97.9 F 12/13/18 04:00 Pulse 86 12/13/18 08:14 Resp 18 12/13/18 04:00 BP 125/70 12/13/18 08:14 Pulse Ox 99 12/13/18 04:00 Intake & Output 12/12/18 12/13/18 12/13/18 18:59 06:59 18:59 Intake Total 240 150 Balance 240 150 Weight (lbs) 58.06 kg 58.06 kg Intake: Oral 240 150 Other: # Voids 2 3 # Bowel Movements 0 Weight Source Bedscale Bedscale Active Medications: Current Medications Acetaminophen/Hydrocodone Bitart ([place] 5mg/325mg) 1 tab PO Q6H PRN PRN Reason: MODERATE PAIN Stop: 02/10/19 12:38 Last Admin: 12/13/18 04:40 Dose: 1 tab Dextrose (D50w) 50 ml IVP PRN PRN PRN Reason: BS below 70 & not tolerate po Stop: 02/10/19 08:27 Dextrose (Glutose 40%) 18.75 gm PO PRN PRN PRN Reason: BS below 70 & tolerate po Stop: 02/10/19 08:27 Gabapentin (Neurontin) 600 mg PO DAILY [facility] Stop: 02/10/19 08:59 Last Admin: 12/13/18 08:15 Dose: 600 mg Glucagon (Glucagen) 1 mg IM PRN PRN PRN Reason: BS below 70&dextrose ineffecti Stop: 02/10/19 08:27 Glyburide (Diabeta) 10 mg PO BID [facility] Stop: 02/10/19 08:59 Last Admin: 12/13/18 08:15 Dose: 10 mg Levofloxacin (Levaquin Pb) 500 mg in 100 mls @ 100 mls/hr IV Q24H [facility] Stop: 02/10/19 16:59 Last Admin: 12/12/18 16:11 Dose: 100 mls/hr Insulin Human Lispro (Humalog Insulin Sliding Scale) 0 units SUBQ ACHS [facility]; Protocol Stop: 02/10/19 11:29 Last Admin: 12/13/18 07:59 Dose: 4 units Lisinopril (Zestril) 5 mg PO DAILY [facility] Stop: 02/10/19 08:59 Last Admin: 12/13/18 08:14 Dose: 5 mg Lorazepam (Ativan) 0.5 mg PO HS [facility]; Protocol Stop: 02/10/19 20:59 Metformin HCl (Glucophage) 850 mg PO BIDWM [facility] Stop: 02/10/19 17:59 Last Admin: 12/13/18 08:16 Dose: 850 mg Pantoprazole Sodium (Protonix) 40 mg IVP DAILY [facility] Stop: 02/10/19 12:59 Last Admin: 12/13/18 08:16 Dose: 40 mg General: Alert, No acute distress HEENT: Atraumatic, PERRLA, EOMI Neck: Supple Cardiovascular: Regular rate, Normal S1, Normal S2 Lungs: Clear to auscultation Abdomen: Bowel sounds Extremities: no Clubbing, no Cyanosis, no Edema Neurological: Normal gait - Procedures Procedures: Procedures Procedure Code Date EXCISION OF STOMACH, ENDO, DIAGN [id number] 08/24/18 Assessment/Plan - Assessment Assessment: uti abd pain GERD Anxiety neuropathy diabetes mellitus htn Depression - Plan Plan: will admit, continue current meds. Nutritional Asmnt/Malnutr-PDOC - Dietary Evaluation Malnutrition Findings (Please click <Entered> for more info): Nutritional Asmnt/Malnutrition Start: 12/12/18 15: 22 Text: Status: Complete Freq: Protocol: Document 12/12/18 15:23 [email or web address] (Rec: 12/12/18 15:37 [email or web address]) Nutritional Asmnt/Malnutrition Patient General Information Nutritional Screening High Risk Diagnosis hyperglycemia, UTI Pertinent Medical Hx/Surgical Hx HTN, DM, ESRD, anxiety Subjective Information Pt seen sitting on bed having lunch at time of visit, alert and pleasant. Pt stated appetite is improved right now . Pt has been trying to follow diabetic diet at home, eating healthy meals. Pt had a handful jelly beans on the day before admission, which possibly caused the high glucose level. Discussed meal planing, grocery shopping with pt. Pt verbalized understanding. Current Diet Order/ Nutrition Support [facility] 45 Pertinent Medications diabeta, humalog, levaquin, glucophage, protonix Pertinent Labs 12/12 glucose 342, POC 171-404, Ca 8.5, Alb 3.4 Nutritional Hx/Data Height 1.5 m Height (Calculated Centimeters) 149.9 Current Weight (lbs) 58.06 kg Weight (Calculated Kilograms) 58.1 Weight (Calculated Grams) 93931.8 [place] Body Weight 98 Body Mass Index (BMI) 25.8 Weight Status Overweight GI Symptoms GI Symptoms None Last BM none Difficult in: None Skin Integrity/Comment: dry scab to right hand Current %PO Good (75-100%) Estimated Nutritional Goals BEE in Kcals: Using Current wt Calories/Kcals/Kg 23-17 Kcals Calculated 8926-0941 Protein: Using Current wt Protein g/k Protein Calculated 58 Fluid: ml 1334-1566ml (1ml/kcal) Nutritional Problem 1. Problem Problem altered nutrition related labs Etiology hyperglycemia Signs/Symptoms: glucose 630, POC 171-466 Malnutrition Alert Is there a minimum of two criteria No selected? Query Text:Check all the applicable criteria. A minimum of two criteria are recommended for diagnosis of either severe or non-severe malnutrition. Malnutrition Related to Morbid Obesity Malnutrition related to morbid obesity No Intervention/Recommendation Comments 1. Continue with [facility] 45 diet as ordered. Diabetic education provided. Pt verbalized understanding. 2. Monitor PO intake, wt, labs and skin integrity 3. F/U as moderate risk in 3-5 days Expected Outcomes/Goals Expected Outcomes/Goals 1. PO intake to meet at least 75% of nutritional needs. 2. Wt stability, skin to remain intact, labs to approach WNL.
[2018-12-13] MEDS: Levofloxacin 500mg/100mL 500 MG/100 ML BAG IV SCH (18:00)
[2018-12-13] MEDS ORDERED: Insulin Glargine 100 units/ml 10ml Vial SUBQ SCH (21:00)
[2018-12-13] MEDS ORDERED: Diphenoxylate/Atropine 2.5mg Tab PO PRN (21:17)
[2018-12-14] MEDS: Hydrocodone/APAP 5mg/325mg Tab PO PRN (00:56)
[2018-12-14] MEDS: INSULIN LISPRO SLIDING SCALE 100 UNITS/ML UNIT SUBQ SCH ×2 (06:51→11:51)
--- NOTE | 2018-12-14 08:17 | General Progress Note ---
Subjective - Review of Systems Service Date: 12/14/18 Subjective: Awake, Alert, no acute distress. home less. tearful. still complains of abd pain. Objective - Results Result Diagrams: 12/13/18 04:40 12/13/18 04:40 Recent Labs: Laboratory Last Values WBC 7.7 Th/cmm (4.8-10.8) D 12/13/18 04:40 RBC 4.37 Mil/cmm (3.80-5.10) 12/13/18 04:40 Hgb 12.3 gm/dL (12-16) 12/13/18 04:40 Hct 37.2 % (41.0-60) L 12/13/18 04:40 MCV 84.9 fl (81-100) 12/13/18 04:40 MCH 28.1 pg (27.0-31.0) 12/13/18 04:40 MCHC Differential 33.1 pg (28.0-36.0) 12/13/18 04:40 RDW 11.9 % (11.5-20.0) 12/13/18 04:40 Plt Count 259 Th/cmm (150-400) 12/13/18 04:40 MPV 8.6 fl 12/13/18 04:40 Neutrophils % 51.4 % (40.0-80.0) 12/13/18 04:40 Lymphocytes % 35.5 % (20.0-50.0) 12/13/18 04:40 Monocytes % 9.2 % (2.0-10.0) 12/13/18 04:40 Eosinophils % 1.9 % (0.0-5.0) 12/13/18 04:40 Basophils % 2.0 % (0.0-2.0) 12/13/18 04:40 Sodium 138 mEq/L (136-145) 12/13/18 04:40 Potassium 3.9 mEq/L (3.5-5.1) 12/13/18 04:40 Chloride 101 mEq/L (98-107) 12/13/18 04:40 Carbon Dioxide 29.0 mEq/L (21.0-31.0) 12/13/18 04:40 Anion Gap 11.9 (7.0-16.0) 12/13/18 04:40 BUN 13 mg/dL (7-25) 12/13/18 04:40 Creatinine 0.7 mg/dL (0.6-1.2) 12/13/18 04:40 Est GFR ( Amer) > 60.0 ml/min (>90) 12/13/18 04:40 Est GFR (Non-Af Amer) > 60.0 ml/min 12/13/18 04:40 BUN/Creatinine Ratio 18.6 12/13/18 04:40 Glucose 244 mg/dL (70-105) H 12/13/18 04:40 POC Glucose 120 MG/DL (70 - 105) H 12/14/18 06:08 Calcium 9.2 mg/dL (8.6-10.3) 12/13/18 04:40 Total Bilirubin 0.3 mg/dL (0.3-1.0) 12/13/18 04:40 AST 8 U/L (13-39) L 12/13/18 04:40 ALT 13 U/L (7-52) 12/13/18 04:40 Alkaline Phosphatase 75 U/L (34-104) 12/13/18 04:40 Total Protein 6.2 gm/dL (6.0-8.3) 12/13/18 04:40 Albumin 3.8 gm/dL (3.7-5.3) 12/13/18 04:40 Globulin 2.4 gm/dL 12/13/18 04:40 Albumin/Globulin Ratio 1.6 (1.0-1.8) 12/13/18 04:40 Triglycerides 207 mg/dL (<150) H 12/12/18 09:50 Cholesterol 103 mg/dL (<200) 12/12/18 09:50 LDL Cholesterol Direct 62 mg/dL (75-193) L 12/12/18 09:50 HDL Cholesterol 32 mg/dL (23-92) 12/12/18 09:50 TSH 1.34 uIU/ml (0.34-5.60) 12/11/18 23:50 Urine Source CLEAN C 12/11/18 23:25 Urine Color YELLOW 12/11/18 23:25 Urine Clarity HAZY (CLEAR) 12/11/18 23:25 Urine pH 6.0 (4.6 - 8.0) 12/11/18 23:25 Ur Specific [place] <= 1.005 (1.005-1.030) 12/11/18 23:25 Urine Protein NEGATIVE mg/dL (NEGATIVE) 12/11/18 23:25 Urine Glucose (UA) >=1000 mg/dL (NEGATIVE) H 12/11/18 23:25 Urine Ketones NEGATIVE mg/dL (NEGATIVE) 12/11/18 23:25 Urine Blood TRACE (NEGATIVE) 12/11/18 23:25 Urine Nitrate NEGATIVE (NEGATIVE) 12/11/18 23:25 Urine Bilirubin NEGATIVE (NEGATIVE) 12/11/18 23:25 Urine Urobilinogen 0.2 E.U./dL (0.2 - 1.0) 12/11/18 23:25 Ur Leukocyte Esterase NEGATIVE (NEGATIVE) 12/11/18 23:25 Urine RBC 2-5 /hpf (0-5) 12/11/18 23:25 Urine WBC 25-50 /hpf (0-5) H 12/11/18 23:25 Ur Epithelial Cells FEW /lpf (FEW) 12/11/18 23:25 Urine Bacteria FEW /hpf (NONE SEEN) 12/11/18 23:25 - Physical Exam Vitals and I&O: Vital Signs Temp 98.1 F 12/14/18 04:00 Pulse 93 12/14/18 04:00 Resp 17 12/14/18 04:00 BP 111/71 12/14/18 04:00 Pulse Ox 97 12/14/18 04:00 Intake & Output 12/13/18 12/14/18 12/14/18 18:59 06:59 18:59 Intake Total 670 180 Balance 670 180 Weight (lbs) 58.06 kg 58.06 kg Intake: Oral 670 180 Other: # Voids 4 3 # Bowel Movements 2 Weight Source Bedscale Bedscale Active Medications: Current Medications Acetaminophen (Tylenol) 650 mg PO Q6H PRN PRN Reason: Pain or Fever >101 Stop: 02/11/19 21:19 Last Admin: 12/13/18 21:56 Dose: 650 mg Acetaminophen/Hydrocodone Bitart ([place] 5mg/325mg) 1 tab PO Q6H PRN PRN Reason: MODERATE PAIN Stop: 02/10/19 12:38 Last Admin: 12/14/18 00:56 Dose: 1 tab Dextrose (D50w) 50 ml IVP PRN PRN PRN Reason: BS below 70 & not tolerate po Stop: 02/10/19 08:27 Dextrose (Glutose 40%) 18.75 gm PO PRN PRN PRN Reason: BS below 70 & tolerate po Stop: 02/10/19 08:27 Diphenoxylate HCl/Atropine (Lomotil) 1 tab PO Q6H PRN PRN Reason: Diarrhea Stop: 02/11/19 21:16 Last Admin: 12/13/18 21:57 Dose: 1 tab Gabapentin (Neurontin) 600 mg PO DAILY [facility] Stop: 02/10/19 08:59 Last Admin: 12/13/18 08:15 Dose: 600 mg Glucagon (Glucagen) 1 mg IM PRN PRN PRN Reason: BS below 70&dextrose ineffecti Stop: 02/10/19 08:27 Glyburide (Diabeta) 10 mg PO BID [facility] Stop: 02/10/19 08:59 Last Admin: 12/13/18 18:02 Dose: 10 mg Levofloxacin (Levaquin Pb) 500 mg in 100 mls @ 100 mls/hr IV Q24H [facility] Stop: 02/10/19 16:59 Last Admin: 12/13/18 18:00 Dose: 100 mls/hr Insulin Glargine (Lantus Insulin) 5 units SUBQ BID [facility] Stop: 02/12/19 08:59 Insulin Human Lispro (Humalog Insulin Sliding Scale) 0 units SUBQ ACHS [facility]; Protocol Stop: 02/10/19 11:29 Last Admin: 12/14/18 06:51 Dose: Not Given Lisinopril (Zestril) 5 mg PO DAILY [facility] Stop: 02/10/19 08:59 Last Admin: 12/13/18 08:14 Dose: 5 mg Lorazepam (Ativan) 0.5 mg PO HS [facility]; Protocol Stop: 02/10/19 20:59 Last Admin: 12/13/18 21:56 Dose: 0.5 mg Metformin HCl (Glucophage) 1,000 mg PO BIDWM [facility] Stop: 02/11/19 17:59 Last Admin: 12/13/18 18:03 Dose: 1,000 mg Pantoprazole Sodium (Protonix) 40 mg IVP DAILY [facility] Stop: 02/10/19 12:59 Last Admin: 12/13/18 08:16 Dose: 40 mg General: Alert, No acute distress HEENT: Atraumatic, PERRLA, EOMI Neck: Supple Cardiovascular: Regular rate, Normal S1, Normal S2 Lungs: Clear to auscultation Abdomen: Bowel sounds Extremities: no Clubbing, no Cyanosis, no Edema Neurological: Normal gait - Procedures Procedures: Procedures Procedure Code Date EXCISION OF STOMACH, ENDO, DIAGN [id number] 08/24/18 Assessment/Plan - Assessment Assessment: uti abd pain GERD Anxiety neuropathy diabetes mellitus htn Depression - Plan Plan: will admit, continue current meds. increase Lantus 5u BID Evaluation by psychiatry Nutritional Asmnt/Malnutr-PDOC - Dietary Evaluation Malnutrition Findings (Please click <Entered> for more info): Nutritional Asmnt/Malnutrition Start: 12/12/18 15: 22 Text: Status: Complete Freq: Protocol: Document 12/12/18 15:23 LCHENG (Rec: 12/12/18 15:37 LCHENG [email or web address]) Nutritional Asmnt/Malnutrition Patient General Information Nutritional Screening High Risk Diagnosis hyperglycemia, UTI Pertinent Medical Hx/Surgical Hx HTN, DM, ESRD, anxiety Subjective Information Pt seen sitting on bed having lunch at time of visit, alert and pleasant. Pt stated appetite is improved right now . Pt has been trying to follow diabetic diet at home, eating healthy meals. Pt had a handful jelly beans on the day before admission, which possibly caused the high glucose level. Discussed meal planing, grocery shopping with pt. Pt verbalized understanding. Current Diet Order/ Nutrition Support [facility] 45gm Pertinent Medications diabeta, humalog, levaquin, glucophage, protonix Pertinent Labs 12/12 glucose 342, POC 171-404, Ca 8.5, Alb 3.4 Nutritional Hx/Data Height 1.5 m Height (Calculated Centimeters) 149.9 Current Weight (lbs) 58.06 kg Weight (Calculated Kilograms) 58.1 Weight (Calculated Grams) 92828.8 [place] Body Weight 98 Body Mass Index (BMI) 25.8 Weight Status Overweight GI Symptoms GI Symptoms None Last BM none Difficult in: None Skin Integrity/Comment: dry scab to right hand Current %PO Good (75-100%) Estimated Nutritional Goals BEE in Kcals: Using Current wt Calories/Kcals/Kg 23-17 Kcals Calculated 3753-3553 Protein: Using Current wt Protein g/k Protein Calculated 58 Fluid: ml 1334-1566ml (1ml/kcal) Nutritional Problem 1. Problem Problem altered nutrition related labs Etiology hyperglycemia Signs/Symptoms: glucose 630, POC 171-466 Malnutrition Alert Is there a minimum of two criteria No selected? Query Text:Check all the applicable criteria. A minimum of two criteria are recommended for diagnosis of either severe or non-severe malnutrition. Malnutrition Related to Morbid Obesity Malnutrition related to morbid obesity No Intervention/Recommendation Comments 1. Continue with [facility] 45gm diet as ordered. Diabetic education provided. Pt verbalized understanding. 2. Monitor PO intake, wt, labs and skin integrity 3. F/U as moderate risk in 3-5 days Expected Outcomes/Goals Expected Outcomes/Goals 1. PO intake to meet at least 75% of nutritional needs. 2. Wt stability, skin to remain intact, labs to approach WNL.
[2018-12-14] MEDS ORDERED: Insulin Glargine 100 units/ml 10ml Vial SUBQ SCH (09:00)
[2018-12-14 13:10] LABS: HEP A AB IGM Negative (Negative); HEP B CORE IGM Negative (Negative); HEP B SURFACE AG QL Negative (Negative); HEP C ANTIBODY <0.1 s/co ratio (0.0-0.9)
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
--- NOTE | 2018-12-15 11:05 | Discharge Summary ---
DATE OF DISCHARGE: 12/14/2018 PRELIMINARY DIAGNOSES: 1. Hyperglycemia. 2. Abdominal pain. 3. Urinary tract infection. 4. Diabetes mellitus type 2. 5. Anxiety. 6. Neuropathy. 7. Hypertension. 8. Gastroesophageal reflux disease. DISCHARGE DIAGNOSES: 1. Hyperglycemia, now resolved. 2. Diabetes mellitus. 3. Hypertension. 4. Neuropathy. 5. Anxiety, depression. 6. Gastroesophageal reflux disease. BRIEF HISTORY OF PRESENT ILLNESS: This is a 53-year-old female who presents to [facility] ER for 4-day history of dysuria. The patient states that the symptoms began 4 days prior to admission with increased frequency, urgency and dysuria with increasing abdominal pain. The patient has a previous medical history of diabetes mellitus, hypertension, hyperlipidemia, neuropathy, gastroesophageal reflux disease and anxiety. While in the ER, the patient had some routine lab work, which revealed sodium of 128, glucose of 630, BUN 12, creatinine 0.9. Her UA showed glucose level of greater than 1000, wbc's were 25-50 cells per high power field. Her initial white count was normal at 9.9, hemoglobin 12.2, hematocrit 36.8, platelets 271,000. The patient was subsequently admitted for further evaluation and treatment. HOSPITAL COURSE: The patient improved during her hospital stay. The patient was started on IV Levaquin 500 mg IV daily. Repeat lab work was done the following day. Initial blood sugars were noted to be in the 600s, which gradually improved to 466 and on day of discharge, her blood sugars were now down to 220 and 150. The patient was seen and evaluated by Psychiatry as well. The patient has a history of depression and anxiety, somewhat depressed. As a result, the patient had a psychiatric evaluation. Please see dictated report. The patient was subsequently discharged in stable condition, was to follow up in my office in 3-5 days. The patient was given prescription for Cipro 500 mg twice daily. The patient was to continue her current medications. [facility]# [id number]
== END 2018-12-14 16:50 | disposition home or self-care (01) | DRG 420 ==
LOC: ER 23:03 → MSI 12-12 04:10
PROVIDERS: ADMIT Family Medicine; ATTEND Family Medicine
DX: E11.00 Type 2 diabetes mellitus with hyperosmolarity without nonketotic hyperglycemic-hyperosmolar coma (NKHHC) (principal); E11.22 Type 2 diabetes mellitus with diabetic chronic kidney disease; E11.40 Type 2 diabetes mellitus with diabetic neuropathy, unspecified; F33.9 Major depressive disorder, recurrent, unspecified; I12.0 Hypertensive chronic kidney disease with stage 5 chronic kidney disease or end stage renal disease; N39.0 Urinary tract infection, site not specified; E11.65 Type 2 diabetes mellitus with hyperglycemia; K21.9 Gastro-esophageal reflux disease without esophagitis; E87.1 Hypo-osmolality and hyponatremia; N18.6 End stage renal disease; F41.9 Anxiety disorder, unspecified; R30.0 Dysuria; Z88.0 Allergy status to penicillin
CPT/HCPCS: 36415-UA; 80053-TC; 80061-TC; 80074-90; 81001-TC; 81003-TC; 82948-90; 83036-90; 84443-TC; 85025-TC; 87086-90; 96375; C9113; J1815; J1956; J2405; J7030; Z7610

== ENCOUNTER 2019-06-08 23:53 | Emergency (ER) | payer MEDICAID ==
--- NOTE | 2019-06-09 00:29 | ED Physician Chart ---
ED Chief Complaint/HPI - Patient Information Date Seen:: 06/09/19 Time Seen:: 00:20 Chief Complaint:: pain right index finger History of Present Illness:: Patient noted pain and redness around nail right index finger yesterday. Patient sometimes bites her fingernails Allergies:: Allergies Allergy/AdvReac Type Severity Reaction Status Date / Time Penicillins [PCN] Allergy Verified 05/13/19 01:31 Vitals:: Vital Signs - 8 hr 06/09/19 00:00 Temp 98.4 F HR 89 RR 18 BP 130/69 O2 Sat % 97 ED Review of Systems - Review of Systems General/Constitutional: No fever, No chills Skin: Skin lesions Head: No headache Eyes: No loss of vision ENT: No earache Neck: No neck pain, No swelling Cardio Vascular: No chest pain, No palpitations Pulmonary: No SOB GI: No nausea, No vomiting, No diarrhea G/U: No dysuria Musculoskeletal: No bone or joint pain Endocrine: No polyuria Psychiatric: No prior psych history ED Past Medical History - Past Medical History Past Medical History: No significant medical hx Family History: None Social History: Smoker Surgical History: other (endoscopy) Psychiatricy History: None Family Medical History - Family Member Mother History Unknown: Yes Ethnicity: Hx Family Cancer: No Hx Family Congestive Heart Failure: No Hx Family Hypertension: No Hx Family Diabetes: No Hx Family Seizures: No Hx Family Dementia: No Hx Family HIV: No Hx Family Psychiatric Problems: No ED Physical Exam - Physical Examination General/Constitutional: Awake, Well-developed, well-nourished, Alert, No distress, GCS 15, Non-toxic appearing, Ambulatory Head: Atraumatic Eyes: Lids, conjuctiva normal Skin: Nl inspection ENMT: External ears, nose nl Neck: Nontender Respiratory: Nl effort/Exclusion, Clear to Auscultation Cardio Vascular: RRR GI: No tenderness/rebounding/guarding : No CVA tenderness (right long finger: 1 cm redness and swelling adjacent to the base of nail; 5 mm of subcutaneous pus adjacent to the ulnar side of base of nail) ED Assessment Location:: Right long finger: skin clleansed with Betadine solution; 1% Xylocaine for local block; with sterile Iris scissors the ulnar side of the nail was elevated and a about 1 1/2 mm wedge shape section of nail resected; pus drained ED Septic Shock - . Is Septic Shock (SBP<90, OR Lactate>4 mmol\L) present?: No - <6hrs of presentation: Vital Signs: Vital Signs - 8 hr 06/09/19 00:00 Temp 98.4 F HR 89 RR 18 BP 130/69 O2 Sat % 97 ED Reassessment (Disposition) - Reassessment Reassessment Condition:: Improved - Diagnosis Diagnosis:: Paronychia right long finger - Aftercare/Follow up Instructions Medication Prescribed:: Bactrim double strength #10 to take one twice a day - Patient Disposition Discharge/Transfer:: Home Condition at Disposition:: Stable, Improved
[2019-06-09] MEDS ORDERED: Sulfamethoxazole/TMP 800/160mg Tab PO ONE (00:33)
[2019-06-09] MEDS ORDERED: Sulfamethoxazole/TMP 800/160mg Tab ONE (00:39)
== END 2019-06-09 00:53 | disposition home or self-care (01) ==
LOC: ER 23:53
DX: L60.0 Ingrowing nail (principal); L03.011 Cellulitis of right finger; F17.200 Nicotine dependence, unspecified, uncomplicated; Z88.0 Allergy status to penicillin
CPT/HCPCS: Z7502; Z7610